=== PATIENT | female | born 1960 | race Caucasian/White ===

== ENCOUNTER 2023-08-23 14:30 | Oncology outpatient (recurring) (ONCR) | payer OTHER, SELFPAY ==
[2023-08-17 15:45] VITALS: BP 87/52; PULSE 79; RESP 16; TEMP 36.2; O2SAT 97
[2023-08-17] MEDS: sodium chloride 0.9% 1,000 ML 999 ML IV (15:51)
[2023-08-17 16:25] VITALS: BP 85/79; PULSE 77; RESP 18; TEMP 36.4; O2SAT 99
[2023-08-23] MEDS: sodium chloride 0.9% 1,000 ML 999 ML IV (14:13)
[2023-08-23 15:30] VITALS: BP 77/49; PULSE 77; RESP 20; TEMP 36.6; O2SAT 92
--- NOTE | 2023-08-23 16:03 | PC.NURSE ---
Education given to patient and family related to G tube and need for a physician in home town. Discussed how to get orders for feeding supplies and referral for closer MD care. Patient stated understanding.
== END 2023-08-25 23:59 | disposition home or self-care (01) ==
PROVIDERS: Family Provider Nurse Practitioner Family; Visit Provider Internal Medicine Medical Oncology
DX: Z53.9 Procedure and treatment not carried out, unspecified reason (principal); I95.9 Hypotension, unspecified; E87.1 Hypo-osmolality and hyponatremia; E87.5 Hyperkalemia
CPT/HCPCS: 96360; 96365; J7030

== ENCOUNTER 2023-08-30 18:04 | Emergency (ER) | payer OTHER, SELFPAY ==
[2023-08-30] VITALS (13 sets, daily range): BP systolic 82–112; BP diastolic 48–64; PULSE 67–79; RESP 15–18; TEMP 36.4–36.9; O2SAT 97–100; BMI 15.4
--- NOTE | 2023-08-30 18:30 | ED_ITS ---
HPI - Recheck/Abnormal Lab/Rx General: Chief Complaint: Recheck/Abnormal Lab/Rx Stated Complaint: Oncol sent hemoglbin low Time Seen by Provider: 08/30/23 18:21 History of Present Illness: 63-year-old female with a history of hea d neck cancer with tracheostomy who presents the emergency room after lab work was drawn today that revealed she was anemic. She has a macrocytic anemia. No recent GI bleeding no black tarry stools. No increased weakness. says she does seem a little bit pale. Review of Systems Narrative: Constitutional symptoms: Negative except as documented in HPI. Skin symptoms: Negative except as documented in HPI. Eye symptoms: Negative except as documented in HPI. ENMT symptoms: Negative except as documented in HPI. Respiratory symptoms: Negative except as documented in HPI. Cardiovascular symptoms: Negative except as documented in HPI. Gastrointestinal symptoms: Negative except as documented in HPI. Genitourinary symptoms: Negative except as documented in HPI. Musculoskeletal symptoms: Negative except as documented in HPI. Neurologic symptoms: Negative except as documented in HPI. Psychiatric symptoms: Negative except as documented in HPI. Endocrine symptoms: Negative except as documented in HPI. Physical Exam Narrative: EXAM NARRATIVE: General: Alert, no acute distress. Skin: Warm, dry. Head: Normocephalic, atraumatic. Neck: Supple, trachea midline. Tracheostomy in place Eye: Extraocular movements are intact. Ears, nose, mouth and throat: mucosa moist. Cardiovascular: Regular, Normal peripheral perfusion. Respiratory: Lungs are clear to auscultation, respirations are non-labored, br eath sounds are equal, Symmetrical chest wall expansion. Gastrointestinal: Soft, Nontender, Non distended, Normal bowel sounds. Musculoskeletal: Normal ROM, no deformity. Neurological: Alert and oriented, No focal neurological deficit observed. Psychiatric: Cooperative, appropriate mood & affect. Course Vital Signs: Vital signs: Vital Signs Temperature 97.8 F 08/30/23 20:34 Pulse Rate 77 08/30/23 20:34 Respiratory Rate 16 08/30/23 20:34 Blood Pressure 98/54 08/30/23 20:34 Pulse Oximetry 99 08/30/23 20:34 Oxygen Delivery Me thod Room Air, Trach C ollar 08/30/23 18:07 MDM - Recheck/Abnormal Lab/Rx Medical Decision Making Assessment and plan: Anemia -2 units packed red blood cells ordered. Also ordered iron and thiamine and folate levels - Discharged home - Discussed plan with patient. Answered any questions. - Evaluation and treatment of this problem were appropriate in the emergency setting. Lab Data Laboratory Results Iron 72 ug/dL (37-145) 08/30/23 17:02 TIBC 381 mcg/dl 08/30/23 17:02 % Saturation 18.8 % (20-50) L 08/30/23 17:02 Unsat Iron Binding 309 ug/dL (112-347) 08/30/23 17:02 Folate 19.3 ng/mL (4.8-37.3) 08/30/23 17:02 Blood Type A Positive 08/30/23 17:02 Rho(D) Type Rh positive 08/30/23 17:02 Antibody Screen Negative 08/30/23 17:02 Crossmatch See Detail 08/30/23 17:02 No radiology studies performed this visit Discharge Plan Discharge Patient Disposition: Home Clinical Impression: Anemia Qualifiers: Anemia type: unspecified type Qualified Code(s): D64.9 - Anemia, unspecified Condition: Stable Discharge Orders: Discharge ED (Routine); Ordered 08/30/23 Ordered By: Beth Finley Referrals: Xi Corona FNP [Primary Care Provider] - Discharge Diet: Usual diet Discharge Activity: Resume usual activity Patient Instructions: Anemia (ED), Blood Transfusion (DC) Activity Restrictions/Additional Instructions: Thank you for choosing [facility] for your healthcare needs today. Please realize this is an emergency room and that we are providing you with a medical screening exam and this may not be complete and all inclusive of all the testing and or work up that you may need to determine your ailment or severity of your illness. You have been screened and evaluated and felt safe for discharge. Health conditions do change or evolve sometimes and as such it is important that you follow up with your Primary Doctor to be re checked, 3-5 days is a general good time frame for follow up. You are always welcome to return to the ED for re assessment if your symptoms are worsening or you have new concerns Coding Level of Care Code ED Auto Heater Mechanic for Adria Song
[2023-08-30 19:39] LABS: Iron 72 ug/dL (37-145); Percent Saturation 18.8 % (20-50); Total Iron Binding Capacity 381 mcg/dl; Unsaturated Iron Binding 309 ug/dL (112-347)
[2023-08-30 20:02] LABS: Folate Level 19.3 ng/mL (4.8-37.3)
--- NOTE | 2023-08-30 20:56 | PC.NURSE ---
RT CALLED TO SUCTION PT
[2023-09-05 15:18] LABS: Vitamin B1 (Thiamine),Blood 166 nmol/L (78-185)
== END 2023-08-31 00:39 | disposition home or self-care (01) ==
PROVIDERS: Emergency Provider Emergency Medicine; PCP Nurse Practitioner Family
DX: D64.9 Anemia, unspecified (principal); Z93.0 Tracheostomy status
CPT/HCPCS: 36430; 82746; 83540; 83550; 84425; 86850; 86900; 86920; 99284; P9016; P9040

== ENCOUNTER 2023-09-21 15:00 | Oncology outpatient (recurring) (ONCR) | payer OTHER, SELFPAY ==
[2023-08-30] MEDS: sodium chloride 0.9% 1,000 ML 999 ML IV (15:16)
[2023-08-30 15:19] VITALS: BP 69/42; PULSE 58; RESP 18; TEMP 36.8; O2SAT 97
[2023-08-30 15:22] VITALS: BP 80/42
[2023-08-30 16:26] VITALS: BP 86/54
[2023-08-30 16:39] LABS: Basophils # 0.1 10^3/uL (0.0-0.1); Basophils % 0.9 %; Eosinophils # 0.3 10^3/uL (0.0-0.8); Eosinophils % 4.9 %; Lymphocytes % 18.8 %; Mean Corpuscular Hemoglobin 33.7 pg (27-33); Mean Corpuscular Volume 108.9 fl (85-98); Mean Platelet Volume 10.1 fL (7.4-10.4); Monocytes # 0.5 10^3/uL (0.2-0.9); Monocytes % 9.4 %; Neutrophils # 3.48 10^3/uL (1.8-7.7); Neutrophils % 65.2 %; Nucleated Red Blood Cells % 0.4 %; Platelet Count 189 10^3/cmm (157-399); Red Blood Count 1.69 10^6/uL (3.85-5.65); Red Cell Distribution Width 18.2 % (12.1-15.1); White Blood Count 5.33 10^3/uL (3.29-11.43)
[2023-08-30 16:53] LABS: Hematocrit 18.4 % (36-47)
[2023-08-30 18:03] LABS: Alanine Aminotransferase 9 U/L (0-33); Albumin Level 3.2 g/dL (3.5-5.2); Alkaline Phosphatase 61 U/L (35-105); Aspartate Amino Transferase 16 U/L (0-32); Calcium 7.8 mg/dL (8.5-10.5); Carbon Dioxide 18 mmol/L (22-29); Chloride 113 mmol/L (98-107); Globulin 2.3 g/dL (1.3-4.6); Glomerular Filtration Rate 45.4 mL/min (90-130); Glucose 72 mg/dL (65-115); Osmolality Calculated 318 mOsm/kg (285-295); Sodium 142 mmol/L (136-145); Total Bilirubin 0.2 mg/dL (0.15-1.2); Total Protein 5.5 g/dL (6.6-8.7)
[2023-08-30 18:46] LABS: Blood Urea Nitrogen 83 mg/dL (8-23)
[2023-09-07] MEDS: sodium chloride 0.9% 1,000 ML 999 ML IV (15:12)
[2023-09-07 15:19] LABS: Basophils # 0.1 10^3/uL (0.0-0.1); Eosinophils # 0.3 10^3/uL (0.0-0.8); Eosinophils % 5.4 %; Hematocrit 33.3 % (36-47); Lymphocytes # 1.1 10^3/uL (0.8-4.8); Lymphocytes % 17.5 %; Mean Corpuscular Hemoglobin 32.9 pg (27-33); Mean Corpuscular Volume 99.7 fl (85-98); Mean Platelet Volume 9.1 fL (7.4-10.4); Monocytes # 0.6 10^3/uL (0.2-0.9); Monocytes % 9.4 %; Neutrophils # 4.03 10^3/uL (1.8-7.7); Neutrophils % 66.5 %; Nucleated Red Blood Cells % 0 %; Platelet Count 225 10^3/cmm (157-399); Red Blood Count 3.34 10^6/uL (3.85-5.65); Red Cell Distribution Width 17.3 % (12.1-15.1); White Blood Count 6.06 10^3/uL (3.29-11.43)
[2023-09-07 16:17] LABS: Alanine Aminotransferase 13 U/L (0-33); Albumin Level 3.6 g/dL (3.5-5.2); Alkaline Phosphatase 65 U/L (35-105); Anion Gap 13.1 (5-19); Aspartate Amino Transferase 19 U/L (0-32); Blood Urea Nitrogen 47 mg/dL (8-23); Calcium 8.8 mg/dL (8.5-10.5); Carbon Dioxide 21 mmol/L (22-29); Chloride 112 mmol/L (98-107); Globulin 2.6 g/dL (1.3-4.6); Glomerular Filtration Rate 63.2 mL/min (90-130); Glucose 76 mg/dL (65-115); Osmolality Calculated 303 mOsm/kg (285-295); Potassium 5.1 mmol/L (3.5-5.1); Sodium 141 mmol/L (136-145); Total Bilirubin 0.2 mg/dL (0.15-1.2); Total Protein 6.2 g/dL (6.6-8.7)
[2023-09-07 16:20] VITALS: BP 106/66; PULSE 70; RESP 16; TEMP 37.2; O2SAT 98
[2023-09-14 15:00] VITALS: BP 89/71; PULSE 89; RESP 18; TEMP 36.6; O2SAT 98
[2023-09-14] MEDS: sodium chloride 0.9% 1,000 ML 999 ML IV (15:00)
[2023-09-14 16:00] VITALS: BP 89/68; PULSE 82; RESP 18; TEMP 36.6; O2SAT 98
[2023-09-21 15:10] VITALS: BP 80/59; PULSE 87; RESP 18; TEMP 36.5; O2SAT 97
[2023-09-21] MEDS: sodium chloride 0.9% 1,000 ML 999 ML IV (15:16)
[2023-09-21 16:29] VITALS: BP 99/64; PULSE 83; RESP 17; TEMP 36.4; O2SAT 99
== END 2023-09-24 23:59 | disposition home or self-care (01) ==
PROVIDERS: Family Provider Nurse Practitioner Family; Visit Provider Internal Medicine Medical Oncology
DX: Z53.9 Procedure and treatment not carried out, unspecified reason (principal); I95.9 Hypotension, unspecified; E87.1 Hypo-osmolality and hyponatremia; E87.5 Hyperkalemia; C15.9 Malignant neoplasm of esophagus, unspecified
CPT/HCPCS: 80053; 85025; 96360; J7030

== ENCOUNTER 2023-10-25 14:00 | Oncology outpatient (recurring) (ONCR) | payer OTHER, SELFPAY ==
[2023-10-05] MEDS: sodium chloride 0.9% 1,000 ML 999 ML IV (15:27)
[2023-10-05 15:33] VITALS: BP 97/63; PULSE 65; RESP 17; TEMP 36.2; O2SAT 100
[2023-10-05 16:38] VITALS: BP 97/61; PULSE 66; RESP 16; TEMP 36.2; O2SAT 100
[2023-10-12 14:36] VITALS: BP 101/61; PULSE 80; RESP 17; TEMP 36.4; O2SAT 95
[2023-10-12] MEDS: sodium chloride 0.9% 1,000 ML 999 ML IV (14:45)
[2023-10-19 13:45] LABS: Basophils % 0.5 %; Eosinophils # 0.1 10^3/uL (0.0-0.8); Eosinophils % 1.5 %; Hematocrit 29.5 % (36-47); Lymphocytes # 1.2 10^3/uL (0.8-4.8); Mean Corpuscular HGB Conc 30.2 g/dL (30-55); Mean Corpuscular Hemoglobin 32.1 pg (27-33); Mean Corpuscular Volume 106.5 fl (85-98); Monocytes # 0.9 10^3/uL (0.2-0.9); Monocytes % 9.9 %; Neutrophils # 6.47 10^3/uL (1.8-7.7); Neutrophils % 73.8 %; Nucleated Red Blood Cells % 0 %; Platelet Count 330 10^3/cmm (157-399); Red Blood Count 2.77 10^6/uL (3.85-5.65); Red Cell Distribution Width 14.6 % (12.1-15.1); White Blood Count 8.77 10^3/uL (3.29-11.43)
[2023-10-19] MEDS: sodium chloride 0.9% 1,000 ML 999 ML IV (13:45)
[2023-10-19 14:04] LABS: Alanine Aminotransferase 14 U/L (0-33); Albumin Level 4.2 g/dL (3.5-5.2); Alkaline Phosphatase 80 U/L (35-105); Anion Gap 16.2 (5-19); Aspartate Amino Transferase 21 U/L (0-32); Blood Urea Nitrogen 63 mg/dL (8-23); Calcium 9.2 mg/dL (8.5-10.5); Carbon Dioxide 18 mmol/L (22-29); Chloride 110 mmol/L (98-107); Globulin 3.1 g/dL (1.3-4.6); Glomerular Filtration Rate 50.2 mL/min (90-130); Glucose 118 mg/dL (65-115); Osmolality Calculated 305 mOsm/kg (285-295); Potassium 6.2 mmol/L (3.5-5.1); Sodium 138 mmol/L (136-145); Total Bilirubin 0.3 mg/dL (0.15-1.2); Total Protein 7.3 g/dL (6.6-8.7)
[2023-10-25] MEDS: sodium chloride 0.9% 1,000 ML 999 ML IV ×2 (13:37→14:43)
[2023-10-25 13:44] VITALS: BP 102/63; PULSE 73; O2SAT 99
[2023-10-25 16:16] LABS: Alanine Aminotransferase 11 U/L (0-33); Albumin Level 3.5 g/dL (3.5-5.2); Alkaline Phosphatase 63 U/L (35-105); Aspartate Amino Transferase 19 U/L (0-32); Blood Urea Nitrogen 42 mg/dL (8-23); Calcium 7.7 mg/dL (8.5-10.5); Carbon Dioxide 16 mmol/L (22-29); Chloride 117 mmol/L (98-107); Globulin 2.6 g/dL (1.3-4.6); Glomerular Filtration Rate 72.4 mL/min (90-130); Glucose 98 mg/dL (65-115); Osmolality Calculated 302 mOsm/kg (285-295); Sodium 141 mmol/L (136-145); Total Bilirubin 0.2 mg/dL (0.15-1.2); Total Protein 6.1 g/dL (6.6-8.7)
== END 2023-10-25 23:59 | disposition home or self-care (01) ==
PROVIDERS: Internal Medicine; Family Provider Nurse Practitioner Family; PCP Nurse Practitioner Family; Visit Provider Internal Medicine Medical Oncology
DX: E87.5 Hyperkalemia (principal); Z53.9 Procedure and treatment not carried out, unspecified reason
CPT/HCPCS: 36591; 80053; 85025; 96360; 96361; J7030

== ENCOUNTER 2023-10-31 15:25 | Emergency (ER) | payer OTHER, SELFPAY ==
[2023-10-31 15:40] VITALS: BP 116/75; PULSE 83; RESP 22; TEMP 36.8; O2SAT 98
--- NOTE | 2023-10-31 16:59 | CTR_ITS ---
PROCEDURE INFORMATION: Exam: CT Neck With Contrast Exam date and time: 10/31/2023 6:20 PM Age: 63 years old Clinical indication: Mass, lump, or swelling in neck; Right; Neck pain; Prior surgery; Surgery date: 6+ months; Surgery type: Trach TECHNIQUE: Imaging protocol: Computed tomography of the neck with contrast. Radiation optimization: All CT scans at this facility use at least one of these dose optimization techniques: automated exposure control; mA and/or kV adjustment per patient size (includes targeted exams where dose is matched to clinical indication); or iterative reconstruction. Contrast material: OMNI 350; Contrast volume: 70 ml; Contrast route: INTRAVENOUS (IV); COMPARISON: CT head wo con* [id number] 09/23/2018 10:11 AM RADIATION DOSE METRICS: Total DLP (mGy-cm): 173 FINDINGS: Tubes, catheters and devices: Tracheostomy tube courses within the trachea with its tip terminating proximally 3.2 cm above the nehemiah. Right-sided chest port courses within SVC extending inferiorly out of the field of view. Brain: No acute intracranial findings. Salivary glands: The submandibular and parotid glands are atrophic. Pharynx: No significant tonsillar enlargement. Prevertebral and retropharyngeal spaces: There is a 0.6 x 0.5 x 0.9 cm nonspecific enhancing focus medial to the left carotid bifurcation (series 3, image 83). Larynx: Epiglottis is normal. Thyroid: Subcentimeter hypoattenuating thyroid nodules. Trachea: Visualized trachea is unremarkable. Lungs: No focal consolidations. There is a 1.0 x 0.6 cm nodular opacity within the right upper lobe (series 3, image 133). Pleural spaces: Severe emphysema with biapical pleural-parenchymal scarring. Lymph nodes: Mildly prominent mediastinal lymph nodes. No cervical lymphadenopathy. Vasculature: Mild atherosclerotic calcifications. Mild atherosclerotic calcifications of the bilateral carotid bifurcations and proximal internal carotid arteries without significant stenosis. Bones/joints: Prominent posterior disc osteophyte complexes of the lower of C5-C6 and C6-C7 causing a mild degree of central canal stenosis. Mild bilateral facet arthropathy. Soft tissues: There is skin thickening within the soft tissues surrounding the trachea without mass lesions. CT/CT neck w con* [id number] IMPRESSION: 1. There is a 0.6 x 0.5 x 0.9 cm nonspecific enhancing focus medial to the left carotid bifurcation (series 3, image 83). Findings can be further evaluated with PET-CT if clinically indicated. 2. There is a 1.0 x 0.6 cm nodular opacity within the right upper lobe (series 3, image 133). Findings can also be further evaluated with PET-CT if clinically indicated. This was not seen on prior chest CT May 26, 2014. 3. There is skin thickening within the soft tissues surrounding the trachea without mass lesions. COMMENTS: Consistent with the [employer]'s Incidental Findings Committee white paper (J Am Maia Radiol 2015): In patients aged 35 years and older with an incidental thyroid nodule equal to or greater than 1.[address], MRI or extrathyroidal US, further evaluation with dedicated thyroid US is recommended for patients with normal life expectancy and without comorbidities. For smaller nodules without suspicious features, no further evaluation or follow up is recommended.
--- NOTE | 2023-10-31 17:16 | ED_ITS ---
HPI - General Adult 2 General: Chief complaint: Airway/Esophagus Foreign Body Stated complaint: Right side jaw swelling Time Seen by Provider: 10/31/23 16:56 Source: patient Mode of arrival: ambulatory Limitations: no limitations History of Present Illness: 63-year-old female and history of laryng eal cancer is had a trach she states she sees [place] for this she states she had an EGD 5 days ago and since then she has been having some swelling on the right side of her neck along with pain and some difficulty swallowing she denies any fevers denies any worse improved factors. Associated symptoms: Deny chest pain, dyspnea, headache(s), nausea, rash or vomiting Review of Systems 2 Const: Denies: fever(s), chills, body aches or change in appetite Eyes: Denies: blurry vision or eye discomfort ENMT: Reports: throat pain and odynophagia; Denies: dental pain Card: Denies: chest pain Resp: Denies: dyspnea GI: Denies: abdominal pain, nausea, vomiting or diarrhea Musc: Denies: neck pain or back pain Skin/Breast: Denies: rash Neuro: Denies: headache(s) Physical Exam 2 Const: COMMON NORMALS: patient oriented x3 HENMT: COMMON NORMALS: normocephalic and atraumatic HEAD & SCALP: n ormocephalic and atraumatic OTHER: No throat swelling noted on exam handling secretions well Eye: COMMON NORMALS: Equal, round and reactive pupils present and EOMs intact bilaterally PUPIL: Yes Equal, round and reactive pupils present Neck/C-Spine: COMMON NORMALS: full ROM and supple OTHER: Tenderness loss slight swelling to right side of the neck Chest: COMMONS NORMALS: normal inspection of the chest Resp: COMMON NORMALS: normal respiratory effort, No retractions, No use of accessory muscles and clear to auscultation bilaterally AUSCULTATION: clear to auscultation bilaterally Cardio: COMMON NORMALS: regular rate, regular rhythm and No murmurs present (Cardio) RATE: regular rate RHYTHM: regular rhythm Extremity: COMMON NORMALS: normal to inspection and full ROM Neuro: COMMON NORMALS: patient oriented x3, moves all extremities and no focal motor deficits Psych: COMMON NORMALS: mental status grossly normal, Normal thought process present and cooperative THOUGHT PROCESS: Normal thought process present Skin: COMMON NORMALS: no rashes or lesions noted and no wounds GENERAL SKIN EXAM: no rashes or lesions noted Course 2 Vital Signs: Vital signs: Vital Signs Temperature 98.3 F 10/31/23 15:40 Pulse Rate 83 10/31/23 15:40 Respiratory Rate 22 H 10/31/23 15:40 Blood Pressure 116/75 10/31/23 15:40 Pulse Oximetry 98 10/31/23 15:40 Oxygen Delivery Me thod Room Air 10/31/23 15:40 MDM - General Adult Medical Decision Making Patient presents here with neck pain CT showed no acute finding she has no signs of cellulitis or obstruction here either she does have an appointment back with ENT in [place] on Monday inform her she needs to follow-up as scheduled return if worsening she understands agrees to plan. Medical Records I reviewed the patient's medical records. Lab Data I reviewed the patient's lab results. 10/31/23 17:30 10/31/23 17:[address] 10/31/23 16:59 IMPRESSION: 1. There is a 0.6 x 0.5 x 0.9 cm nonspecific enhancing focus medial to the left carotid bifurcation (series 3, image 83). Findings can be further evaluated with PET-CT if clinically indicated. 2. There is a 1.0 x 0.6 cm nodular opacity within the right upper lobe (series 3, image 133). Findings can also be further evaluated with PET-CT if clinically indicated. This was not seen on prior chest CT May 26, 2014. 3. There is skin thickening within the soft tissues surrounding the trachea without mass lesions. COMMENTS: Consistent with the [employer]'s Incidental Findings Committee white paper (J Am Maia Radiol 2015): In patients aged 35 years and older with an incidental thyroid nodule equal to or greater than 1.[address], MRI or extrathyroidal US, further evaluation with dedicated thyroid US is recommended for patients with normal life expectancy and without comorbidities. For smaller nodules without suspicious features, no further evaluation or follow up is recommended. Laboratory Results WBC 8.94 10^3/uL (3.29-11.43) 10/31/23 17:30 RBC 2.60 10^6/uL (3.85-5.65) L 10/31/23 17:30 Hgb 8.30 g/dL (11.27-16.99) L 10/31/23 17:30 Hct 28.0 % (36-47) L 10/31/23 17:30 MCV 107.7 fl (85-98) H 10/31/23 17:30 MCH 31.9 pg (27-33) 10/31/23 17:30 MCHC 29.6 g/dL (30-55) L 10/31/23 17:30 RDW 14.2 % (12.1-15.1) 10/31/23 17:30 Plt Count 375 10^3/cmm (157-399) 10/31/23 17:30 MPV 9.7 fL (7.4-10.4) 10/31/23 17:30 Neut % (Auto) 75.6 % 10/31/23 17:30 Lymph % (Auto) 12.1 % 10/31/23 17:30 [place] % (Auto) 8.7 % 10/31/23 17:30 Eos % (Auto) 2.2 % 10/31/23 17:30 Baso % (Auto) 0.8 % 10/31/23 17:30 Neut # (Auto) 6.76 10^3/uL (1.8-7.7) 10/31/23 17:30 Lymph # (Auto) 1.1 10^3/uL (0.8-4.8) 10/31/23 17:30 [place] # (Auto) 0.8 10^3/uL (0.2-0.9) 10/31/23 17:30 Eos # (Auto) 0.2 10^3/uL (0.0-0.8) 10/31/23 17:30 Baso # (Auto) 0.1 10^3/uL (0.0-0.1) 10/31/23 17:30 Nucleated RBC % (auto) 0 % 10/31/23 17:30 Nucleated RBCs # 0.0 /100WBC 10/31/23 17:30 Sodium 136 mmol/L (136-145) 10/31/23 17:30 Potassium 5.5 mmol/L (3.5-5.1) H 10/31/23 17:30 Chloride 103 mmol/L (98-107) 10/31/23 17:30 Carbon Dioxide 18 mmol/L (22-29) L 10/31/23 17:30 Anion Gap 20.5 (5-19) H 10/31/23 17:30 BUN 36 mg/dL (8-23) H 10/31/23 17:30 Creatinine 0.8 mg/dL (0.5-0.9) 10/31/23 17:30 GFR Calculation 72.4 mL/min (90-130) L 10/31/23 17:30 Glucose 92 mg/dL (65-115) 10/31/23 17:30 Calculated Osmolality 290 mOsm/kg (285-295) 10/31/23 17:30 Calcium 9.5 mg/dL (8.5-10.5) 10/31/23 17:30 Total Bilirubin 0.2 mg/dL (0.15-1.2) 10/31/23 17:30 AST 20 U/L (0-32) 10/31/23 17:30 ALT 15 U/L (0-33) 10/31/23 17:30 Alkaline Phosphatase 87 U/L (35-105) 10/31/23 17:30 Total Protein 7.9 g/dL (6.6-8.7) 10/31/23 17:30 Albumin 4.1 g/dL (3.5-5.2) 10/31/23 17:30 Globulin 3.8 g/dL (1.3-4.6) 10/31/23 17:30 All radiology interpretation(s) finalized by discharge Discharge Plan Discharge Patient Disposition: Home Clinical Impression: Neck pain Condition: Stable Prescriptions: New hydrocodone-acetaminophen 5-325 mg tablet 1 tab PO Q6H PRN (Reason: pain) Qty: 14 0RF Discharge Orders: Discharge ED (Routine); Ordered 10/31/23 Ordered By: Consuelo Galindo Referrals: Corona,PHILIP LayneP [Primary Care Provider] - Discharge Diet: Advance as tolerated Discharge Activity: Resume usual activity Patient Instructions: Neck Pain (ED), Opioid Safety Coding Level of Care Code ED Assistant Public Defender for Adria Song
[2023-10-31 17:43] LABS: Basophils # 0.1 10^3/uL (0.0-0.1); Basophils % 0.8 %; Eosinophils # 0.2 10^3/uL (0.0-0.8); Eosinophils % 2.2 %; Lymphocytes # 1.1 10^3/uL (0.8-4.8); Lymphocytes % 12.1 %; Mean Corpuscular HGB Conc 29.6 g/dL (30-55); Mean Corpuscular Hemoglobin 31.9 pg (27-33); Mean Corpuscular Volume 107.7 fl (85-98); Mean Platelet Volume 9.7 fL (7.4-10.4); Monocytes # 0.8 10^3/uL (0.2-0.9); Monocytes % 8.7 %; Neutrophils # 6.76 10^3/uL (1.8-7.7); Neutrophils % 75.6 %; Nucleated Red Blood Cells % 0 %; Platelet Count 375 10^3/cmm (157-399); Red Cell Distribution Width 14.2 % (12.1-15.1); White Blood Count 8.94 10^3/uL (3.29-11.43)
[2023-10-31 17:58] LABS: Alanine Aminotransferase 15 U/L (0-33); Albumin Level 4.1 g/dL (3.5-5.2); Alkaline Phosphatase 87 U/L (35-105); Anion Gap 20.5 (5-19); Aspartate Amino Transferase 20 U/L (0-32); Blood Urea Nitrogen 36 mg/dL (8-23); Calcium 9.5 mg/dL (8.5-10.5); Carbon Dioxide 18 mmol/L (22-29); Chloride 103 mmol/L (98-107); Creatinine Clr Calc Pharmacy 48.4489; Globulin 3.8 g/dL (1.3-4.6); Glomerular Filtration Rate 72.4 mL/min (90-130); Glucose 92 mg/dL (65-115); Osmolality Calculated 290 mOsm/kg (285-295); Potassium 5.5 mmol/L (3.5-5.1); Sodium 136 mmol/L (136-145); Total Bilirubin 0.2 mg/dL (0.15-1.2); Total Protein 7.9 g/dL (6.6-8.7)
[2023-10-31] MEDS: iohexol 350 mg/mL 500 mL Btl (per mL) IV (18:27)
[2023-10-31 19:08] VITALS: RESP 20; O2SAT 92
[2023-10-31] MEDS: HYDROmorphone 1 mg/mL INJ 1 mL 0.5 MG IVP (19:08)
[2023-10-31] MEDS: ondansetron 2 mg/ML SDV 2 mL 4 MG IVP (19:09)
[2023-10-31 19:15] VITALS: RESP 16; O2SAT 93
== END 2023-10-31 19:36 | disposition home or self-care (01) ==
PROVIDERS: Emergency Provider Emergency Medicine; PCP Nurse Practitioner Family
DX: M54.2 Cervicalgia (principal)
CPT/HCPCS: 36415; 70491; 80053; 85025; 96374; 96375; 99285; J1170; J2405; Q9967

== ENCOUNTER 2023-11-04 14:00 | Observation (INO) | payer OTHER, SELFPAY ==
[2023-11-04] VITALS (24 sets, daily range): BP systolic 117–167; BP diastolic 56–83; PULSE 63–81; RESP 12–21; TEMP 36.5–37.2; O2SAT 94–100; BMI 17.3
--- NOTE | 2023-11-04 14:38 | ED_ITS ---
HPI - General Adult 2 General: Chief complaint: General Medical Stated complaint: labs from [place] yest. Hemoglobin low Time Seen by Provider: 11/04/23 14:14 History of Present Illness: 63-year-old female presents to the [facility] ency room with complaints of abnormal labs. She has a history of laryngeal cancer as well as having a PEG tube and an ileostomy from a previous large bowel perforation. She was seen in [place] yesterday in follow-up had lab work done evidently they contacted that her hemoglobin was 6.2. She denies any known blood loss as she has not had any hematochezia hematemesis coffee-ground emesis. She is not on any anticoagulants. She has no history of anemia issues in the past. Associated symptoms: Deny chest pain, dyspnea or rash Related Data Previous Rx's Medication Instructions Recorded hydrocodone 5 mg-acetaminophen 325 1 tab PO Q6H PRN pain #14 tabs 10/31/23 mg tablet Allergies Allergy/AdvReac Type Severity Reaction Status Date / Time morphine Allergy ADR-Vomitin Verified 11/04/23 14:11 g Review of Systems 2 Const: Denies: fever(s) or chills Card: Denies: chest pain Resp: Denies: dyspnea GI: Denies: abdominal pain : Denies: dysuria, urinary frequency or urinary urgency Musc: Denies: neck pain or back pain Skin/Breast: Denies: rash PFSH ED 2 PFSH: Medical History (Updated 11/04/23 @ 16:57 by Osmel Sierra DO) Amphetamine abuse Tracheostomy in place Ileostomy in place Laryngeal cancer Physical Exam 2 Const: COMMON NORMALS: no acute distress GENERAL APPEARANCE: cooperative and comfortable ORIENTATION/CONSCIOUSNESS: Yes awake, Yes oriented to person, Yes oriented to place and Yes oriented to time HENMT: COMMON NORMALS: normocephalic, atraumatic and hearing grossly normal bilaterally HEAD & SCALP: normocephalic and atraumatic OTHER: Tracheostomy in place. No redness or inflammation of mucus drainage Resp: COMMON NORMALS: normal respiratory effort, No retractions and No use of accessory muscles AUSCULTATION: crackles Laterality: bilateral (Basilar) Cardio: COMMON NORMALS: regular rate, regular rhythm and No murmurs present (Cardio) RATE: regular rate RHYTHM: regular rhythm GI: COMMON NORMALS: Soft to palpation and No hepatosplenomegaly present A USCULTATION: Yes normoactive bowel sounds PALPATION: Yes Soft to palpation, No Tenderness to palpation present (GI), No Guarding due to palpation present (GI) and Yes No hepatosplenomegaly present OTHER: PEG tube and ileostomy in place no abnormal appearance. Extremity: COMMON NORMALS: normal to inspection, capillary refill normal, no clubbing, cyanosis or edema, no calf tenderness and no pedal edema Neuro: SENSORIUM/ORIENTATION: Yes oriented to person, Yes oriented to place and Yes oriented to time Skin: COMMON NORMALS: no rashes or lesions noted GENERAL SKIN EXAM: no rashes or lesions noted Course 2 Vital Signs: Vital signs: Vital Signs Temperature 98.2 F 11/04/23 14:06 Pulse Rate 72 11/04/23 14:06 Respiratory Rate 17 11/04/23 14:06 Blood Pressure 127/65 11/04/23 14:06 Pulse Oximetry 100 11/04/23 14:06 Oxygen Delivery Me thod Room Air 11/04/23 14:06 [facility] - General Adult Medical Decision Making Patient is anemic is also mildly hyperkalemic she seems to be in acute heart failure as well. She has a history of laryngeal cancer. She was at [place] to get evaluation for takedown of her tracheostomy she is not currently getting any chemotherapy treatments. She is receiving potassium supplement which may account for her hyperkalemia. She had no identifiable active sources of bleeding. Her BNP is markedly elevated and chest x-ray does show signs of fluid overload. Will admit patient is receiving IV blood now will need further evaluation for new onset heart failure she was given calcium chloride for hyperkalemia and will hold her potassium supplement Lab Data 11/04/23 14:30 11/04/23 14:30 Radiology Impressions Chest X-Ray 11/04/23 15:26 IMPRESSION: Small right pleural effusion with associated atelectasis Laboratory Results WBC 10.67 10^3/uL (3.29-11.43) 11/04/23 14:30 RBC 2.26 10^6/uL (3.85-5.65) L 11/04/23 14:30 Hgb 7.00 g/dL (11.27-16.99) L 11/04/23 14:30 Hct 23.9 % (36-47) L 11/04/23 14:30 MCV 105.8 fl (85-98) H 11/04/23 14:30 MCH 31.0 pg (27-33) 11/04/23 14:30 MCHC 29.3 g/dL (30-55) L 11/04/23 14:30 RDW 13.8 % (12.1-15.1) 11/04/23 14:30 Plt Count 344 10^3/cmm (157-399) 11/04/23 14:30 MPV 9.3 fL (7.4-10.4) 11/04/23 14:30 Neut % (Auto) 79.4 % 11/04/23 14:30 Lymph % (Auto) 9.7 % 11/04/23 14:30 [place] % (Auto) 8.4 % 11/04/23 14:30 Eos % (Auto) 1.6 % 11/04/23 14:30 Baso % (Auto) 0.5 % 11/04/23 14:30 Reticulocyte % (Auto) 4.5 % (0.5-2.0) H 11/04/23 14:30 Neut # (Auto) 8.48 10^3/uL (1.8-7.7) H 11/04/23 14:30 Lymph # (Auto) 1.0 10^3/uL (0.8-4.8) 11/04/23 14:30 [place] # (Auto) 0.9 10^3/uL (0.2-0.9) 11/04/23 14:30 Eos # (Auto) 0.2 10^3/uL (0.0-0.8) 11/04/23 14:30 Baso # (Auto) 0.1 10^3/uL (0.0-0.1) 11/04/23 14:30 Nucleated RBC % (auto) 0 % 11/04/23 14: Nucleated RBCs # 0.0 /100WBC 11/04/23 14:30 Sodium 142 mmol/L (136-145) 11/04/23 14:30 Potassium 5.3 mmol/L (3.5-5.1) H 11/04/23 14:30 Chloride 107 mmol/L (98-107) 11/04/23 14:30 Carbon Dioxide 24 mmol/L (22-29) 11/04/23 14:30 Anion Gap 16.3 (5-19) 11/04/23 14:30 BUN 37 mg/dL (8-23) H 11/04/23 14:30 Creatinine 0.9 mg/dL (0.5-0.9) 11/04/23 14:30 GFR Calculation 63.2 mL/min (90-130) L 11/04/23 14:30 Glucose 110 mg/dL (65-115) 11/04/23 14:30 Calculated Osmolality 303 mOsm/kg (285-295) H 11/04/23 14:30 Calcium 9.1 mg/dL (8.5-10.5) 11/04/23 14:30 Total Bilirubin 0.2 mg/dL (0.15-1.2) 11/04/23 14:30 AST 21 U/L (0-32) 11/04/23 14:30 ALT 18 U/L (0-33) 11/04/23 14:30 Alkaline Phosphatase 96 U/L (35-105) 11/04/23 14:30 Creatine Kinase 37 U/L (26-192) 11/04/23 14:30 NT-Pro-B Natriuret Pep 06216 pg/mL (0-125) H 11/04/23 14:30 Total Protein 7.3 g/dL (6.6-8.7) 11/04/23 14:30 Albumin 3.8 g/dL (3.5-5.2) 11/04/23 14:30 Globulin 3.5 g/dL (1.3-4.6) 11/04/23 14:30 Blood Type A Positive 11/04/23 15:14 Rho(D) Type Rh positive 11/04/23 15:14 Antibody Screen Negative 11/04/23 15:14 Crossmatch See Detail 11/04/23 15:14 All radiology interpretation(s) finalized by discharge Discharge Plan Discharge Patient Disposition: Admitted As Inpatient Clinical Impression: CHF (congestive heart failure), Laryngeal cancer, Ileostomy in place, Tracheostomy in place, Anemia, Hyperkalemia Condition: Stable Prescriptions: No Action hydrocodone-acetaminophen 5-325 mg tablet 1 tab PO Q6H PRN (Reason: pain) Qty: 14 0RF Referrals: Corona,Xi, IRRIGATION SYSTEM OPERATOR [Primary Care Provider] - Coding Level of Care Code ED Family Intervention Specialist for Adria Song
[2023-11-04 14:44] LABS: Basophils # 0.1 10^3/uL (0.0-0.1); Basophils % 0.5 %; Eosinophils # 0.2 10^3/uL (0.0-0.8); Eosinophils % 1.6 %; Hematocrit 23.9 % (36-47); Lymphocytes % 9.7 %; Mean Corpuscular HGB Conc 29.3 g/dL (30-55); Mean Corpuscular Volume 105.8 fl (85-98); Mean Platelet Volume 9.3 fL (7.4-10.4); Monocytes # 0.9 10^3/uL (0.2-0.9); Monocytes % 8.4 %; Neutrophils # 8.48 10^3/uL (1.8-7.7); Neutrophils % 79.4 %; Nucleated Red Blood Cells % 0 %; Platelet Count 344 10^3/cmm (157-399); Red Blood Count 2.26 10^6/uL (3.85-5.65); Red Cell Distribution Width 13.8 % (12.1-15.1); White Blood Count 10.67 10^3/uL (3.29-11.43)
[2023-11-04 15:05] LABS: Alanine Aminotransferase 18 U/L (0-33); Albumin Level 3.8 g/dL (3.5-5.2); Alkaline Phosphatase 96 U/L (35-105); Anion Gap 16.3 (5-19); Aspartate Amino Transferase 21 U/L (0-32); Blood Urea Nitrogen 37 mg/dL (8-23); Calcium 9.1 mg/dL (8.5-10.5); Carbon Dioxide 24 mmol/L (22-29); Chloride 107 mmol/L (98-107); Creatine Phosphokinase 37 U/L (26-192); Creatinine Clr Calc Pharmacy 51.6582; Globulin 3.5 g/dL (1.3-4.6); Glomerular Filtration Rate 63.2 mL/min (90-130); Glucose 110 mg/dL (65-115); Osmolality Calculated 303 mOsm/kg (285-295); Potassium 5.3 mmol/L (3.5-5.1); Sodium 142 mmol/L (136-145); Total Bilirubin 0.2 mg/dL (0.15-1.2); Total Protein 7.3 g/dL (6.6-8.7)
--- NOTE | 2023-11-04 15:26 | XRR_ITS ---
PROCEDURE INFORMATION: Exam: XR Chest Exam date and time: 11/04/2023 3:41 PM Age: 63 years old Clinical indication: Shortness of breath; Patient HX: Cough; Weakbess; Low hemoglobin TECHNIQUE: Imaging protocol: Radiologic exam of the chest. Views: 1 view. COMPARISON: CT chest w con* [id number] 05/26/2014 11:00 AM FINDINGS: Tubes, catheters and devices: A tracheostomy tube is in good position. A right-sided VAD is in good position with the catheter tip in the lower SVC. Lungs: See Pleural spaces finding. Pleural spaces: A small right pleural effusion is noted along with right basilar atelectasis. Heart/Mediastinum: Unremarkable. No cardiomegaly. Bones/joints: Unremarkable. XR/XR chest 1V portable [id number] IMPRESSION: Small right pleural effusion with associated atelectasis
[2023-11-04 16:00] LABS: NT Pro B Type Natriuretic Pept 12318 pg/mL (0-125)
--- NOTE | 2023-11-04 16:33 | P.HP_ITS ---
Providers/Chief Complaint 2 Primary Care Provider: JASSON Nash Chief Complaint: labs from [facility] yest. Hemoglobin low History of Present Illness Eliane Noble is a 63 year old female with past medical history of laryngeal cancer, post tracheostomy and PEG tube placement back in January 2023, ileostomy for unknown reason in April 2022, post chemoradiation therapy last in February 2023, who follows up for laryngeal cancer at [facility]. Patient followed up at [facility] yesterday for perioperative care in setting of permanent tracheostomy. On the preoperative blood work she was found to be anemic with hemoglobin down to 6.2 so she was sent to the ER. In the ER she was found to have a hemoglobin of 7. Patient has been complaining of difficulty in breathing on and off with occasional episode of dizziness for last few months. It seems patient's hemoglobin in August was 5.7 for which she received blood transfusion after which her hemoglobin has been slowly trending down. She did have an endoscopy earlier this month at [facility] which was reported normal and colonoscopy at [facility] late last year which was reported normal as well. Patient complains of occasional episodes of black tarry bowel movements through ileostomy with last bowel movement of dark color few days ago. Review of Systems 2 General: Reports: 10 or more systems reviewed and unremarkable except in HPI and below Const: Denies: fever(s), chills, body aches, change in appetite, change in weight, malaise, night sweats, diaphoresis, change in sleep pattern, daytime sleepiness or snoring Eyes: Denies: change in vision, blurry vision, photophobia, eye discomfort or eye discharge ENMT: Denies: throat pain, enlarged tonsils, hoarseness, mouth pain, oral sores, dry mouth, tinnitus, nasal congestion or post nasal drip Card: Denies: chest pain, palpitations, irregular heart rhythm, edema, swelling of feet/ankles, lightheadedness, syncope, pre-syncope, dyspnea on exertion, orthopnea, leg pain with exertion or acrocyanosis Resp: Denies: dyspnea, productive cough, non-productive cough, wheezing, stridor, pain on inspiration, change in phlegm color, hemoptysis or chest congestion GI: Denies: abdominal pain, nausea, vomiting, hematemesis, coffee ground emesis, dysphagia, heartburn, diarrhea, constipation, bloating, GI cramping, change in bowel habits, pain on defecation, hematochezia or melena : Denies: flank pain, dysuria, urinary frequency, urinary urgency, urinary hesitancy, nocturia or hematuria Musc: Denies: neck pain, back pain, extremity pain, joint pain, joint swelling, joint redness, joint stiffness or limited range of motion Neuro: Denies: headache(s), numbness in extremities, weakness in extremities, sensory changes, lack of coordination, difficulty walking, frequent falls, dizziness, vertigo, confusion, Slurred speech present, difficulty communicating thoughts or seizure-like activity Psych: Denies: anxiety, depression, mood swings, panic attacks, hopelessness or irritability Endo: Denies: polyuria, polydipsia, tired all the time, cold intolerance, excessive sweating, flushing or heat intolerance Ervin/Lymph: Denies: easy bruising or easy bleeding All/Imm: Denies: tongue swelling, facial swelling or acute wheezing Medications/Allergies Home Medications Medication Instructions Recorded Confirmed Last Taken Type hydrocodone 5 mg-acetaminophen 325 1 tab PO Q6H PRN pain #14 tabs 10/31/23 Unknown Rx mg tablet Allergies Allergy/AdvReac Type Severity Reaction Status Date / Time morphine Allergy ADR-Vomitin Verified 11/04/23 14:11 g PFSH Acute 2 PFSH: Medical History (Updated 11/04/23 @ 17:26 by Saul Teague MD) Hypotension Hypothyroidism Amphetamine abuse Tracheostomy in place Ileostomy in place Laryngeal cancer Surgical History (Updated 11/04/23 @ 17:23 by Saul Teague MD) S/P percutaneous endoscopic gastrostomy (PEG) tube placement Social History (Updated 11/04/23 @ 17:24 by Saul Teague MD) Smoking and tobacco/nicotine status: former use of tobacco/nicotine Alcohol intake: never Substance/Drug Use: former Caregiver/support person: Yes Lives independently: Yes Household members: spouse Vitals/I&O/Wt Last Vital Signs Temp 98.2 F 11/04/23 14:06 Pulse 72 11/04/23 14:06 Resp 17 11/04/23 14:06 BP 127/65 11/04/23 14:06 Pulse Ox 100 11/04/23 14:06 O2 Del Method Room Air 11/04/23 14:06 Weight last 48 hrs Weight 45.813 kg Physical Exam 2 Narrative: General: No acute distress, AO x3 chronically sick appearing, cachectic, temporal wasting, pallor present, port in place in right hemithorax, tracheostomy in place at the center of the neck with clean edges, ileostomy and PEG tube in place HEENT: PERRLA, pupils bilaterally equal and reactive Chest: Normal vesicular breath sounds, no added sounds, equal good air entry bilaterally CVS: S1-S2 regular, no murmurs, no tachycardia, no gallops, no rubs Abdomen: Soft, nontender, no organomegaly, bowel sounds present Neuro: No focal deficits, no facial deformity, AO x3, power 5/5 in all limbs Data 11/04/23 14:30 11/04/23 14:30 A&P Assessment and plan (1) Anemia: Acute on chronic. She did receive blood transfusion back in August. Patient apparently has had EGD earlier this month which was reported normal and colonoscopy late last year which was reported normal as well. Will try to request documentation. Patient would like to follow-up further at either [facility] or [facility] for further workup. Check haptoglobin, LDH, reticulocyte count, iron panel, vitamin B12 and folate levels. Transfused 2 unit of PRBC. Monitor for fluid overload. Protonix twice daily. Start on Carafate ACHS. (2) CHF (congestive heart failure): Shortness of breath and dizziness most likely in setting of severe anemia. CHF cannot be ruled out given history of chemoradiation. Check echocardiogram. (3) S/P percutaneous endoscopic gastrostomy (PEG) tube placement: Continue with feeding as per home. (4) Tracheostomy in place: Tracheostomy care (5) Ileostomy in place: (6) Hyperkalemia: D5 with 10 units of insulin. Repeat BMP in morning. (7) Hypothyroidism: Continue with home dose of levothyroxine. Check TSH. (8) Hypotension: Goal blood pressure less than 140/90 mmHg with mean over 65. Continue with home dose of midodrine 10 mg 3 times daily. Plan Full code Continue with home PEG tube feeds Protonix will be sufficient for PUD prophylaxis SCDs for DVT prophylaxis Attestations 2 Medical Necessity Statement*: Admission under observation for management of symptomatic anemia with dizziness and difficulty breathing requiring blood transfusion and the patient with history of laryngeal cancer post laryngectomy, PEG tube in ileostomy in place Diagnoses Anemia D64.9 CHF (congestive heart failure) I50.9 S/P percutaneous endoscopic gastrostomy (PEG) tube placement Z93.[address] Z93.[address] Z93.2 Hyperkalemia E87.5 Hypothyroidism E03.9 Hypotension I95.9
--- NOTE | 2023-11-04 16:40 | PC.NURSE ---
Attempted x 2 for second IV access x 2 RN. Unable to obtain second IV access. notified. MD rayed port access. Port accessed by jerri GASTELUM.
[2023-11-04 16:54] LABS: Reticulocyte % 4.5 % (0.5-2.0)
[2023-11-04 17:06] LABS: Lactate Dehydrogenase 188 U/L (135-214)
[2023-11-04 17:12] LABS: Procalcitonin 0.17 ng/mL (0-0.5)
[2023-11-04] MEDS: calcium chloride 10% Syr 10 mL 1 GM IVP (17:35)
--- NOTE | 2023-11-04 18:35 | PC.NURSE ---
Pt transferred via gurney from ER to Med Surg Rm [id number] at 1830
[2023-11-04 18:56] LABS: Iron 14 ug/dL (37-145)
[2023-11-04 19:36] LABS: Percent Saturation 3.1 % (20-50); Total Iron Binding Capacity 451 mcg/dl; Unsaturated Iron Binding 437 ug/dL (112-347); Vitamin B12 723 pg/mL (232-1245)
[2023-11-04] MEDS: pantoprazole 40 mg SDV IVP (20:37)
[2023-11-04] MEDS: HYDROmorphone 1 mg/mL INJ 1 mL 0.4 MG IVP ×2 (21:27→23:06)
[2023-11-04] MEDS: acetaminophen 1,000 MG/100 ML PIGGYBACK 400 MG IV (23:06)
[2023-11-05 01:28] LABS: Charge for UA Resulting for Rev
[2023-11-05 01:30] LABS: Bilirubin Urine Negative (Negative); Blood Urine 1+ (Negative); Glucose Urine UA Negative (Normal); Ketones Urine Negative (Negative); Leukocyte Esterase Urine Trace (Negative); Nitrate Urine Negative (Negative); Protein Urine Negative (Negative); Specific Gravity, Urine 1.013 (1.005-1.030); Urine Appearance Clear (CLEAR); Urobilinogen Urine 0.2 mg/dL (Negative)
[2023-11-05 01:35] LABS: Bacteria Urine None Seen /hpf; Hyaline Casts Urine 1.21 /lpf; Squamous Epithelial Cell Urine 0-5 /hpf (0-5); WBC Urine 0-5 /hpf (0-5)
[2023-11-05 01:37] LABS: Urine Color Yellow (Yellow)
[2023-11-05 03:36] VITALS: RESP 16
[2023-11-05] MEDS: HYDROmorphone 1 mg/mL INJ 1 mL 0.4 MG IVP (03:36)
[2023-11-05 04:00] VITALS: BP 126/63; PULSE 71; RESP 16; TEMP 36.7; O2SAT 95
[2023-11-05 04:26] LABS: Basophils # 0.1 10^3/uL (0.0-0.1); Basophils % 0.8 %; Eosinophils # 0.2 10^3/uL (0.0-0.8); Hematocrit 29.8 % (36-47); Lymphocytes # 1.4 10^3/uL (0.8-4.8); Lymphocytes % 17.1 %; Mean Corpuscular HGB Conc 30.5 g/dL (30-55); Mean Corpuscular Hemoglobin 29.3 pg (27-33); Mean Corpuscular Volume 95.8 fl (85-98); Mean Platelet Volume 9.4 fL (7.4-10.4); Monocytes # 1.1 10^3/uL (0.2-0.9); Monocytes % 14.1 %; Neutrophils # 5.15 10^3/uL (1.8-7.7); Neutrophils % 64.5 %; Nucleated Red Blood Cells % 0 %; Platelet Count 303 10^3/cmm (157-399); Red Blood Count 3.11 10^6/uL (3.85-5.65); Red Cell Distribution Width 22.1 % (12.1-15.1); White Blood Count 7.97 10^3/uL (3.29-11.43)
[2023-11-05 04:41] LABS: Alanine Aminotransferase 14 U/L (0-33); Albumin Level 3.3 g/dL (3.5-5.2); Alkaline Phosphatase 88 U/L (35-105); Anion Gap 17.7 (5-19); Aspartate Amino Transferase 19 U/L (0-32); Blood Urea Nitrogen 32 mg/dL (8-23); Calcium 9.6 mg/dL (8.5-10.5); Carbon Dioxide 22 mmol/L (22-29); Chloride 108 mmol/L (98-107); Creatinine Clr Calc Pharmacy 47.2509; Glucose 87 mg/dL (65-115); Magnesium 2.1 mg/dL (1.7-2.3); Osmolality Calculated 302 mOsm/kg (285-295); Phosphorus 4.4 mg/dL (2.5-4.5); Potassium 4.7 mmol/L (3.5-5.1); Sodium 143 mmol/L (136-145); Total Bilirubin 1.6 mg/dL (0.15-1.2); Total Protein 6.3 g/dL (6.6-8.7)
[2023-11-05 04:43] LABS: Chol HDL Ratio 2.56 mg/dL (0.0-4.40); Cholesterol 115 mg/dL (0-200); HDL Cholesterol 45 mg/dL (60-100); LDL Cholesterol Calculated 45 mg/dL (50-129); Triglycerides 127 mg/dL (0-150)
--- NOTE | 2023-11-05 04:47 | PC.NURSE ---
Contacted pt's regarding needing adapters to be able to give her medications through her feeding tube. Pt's husbands states that he is a truckman and is currently driving to drop a load off. Pt's states that it will take him 2 1/2-3 hours to be able to unload his truck, drive back to his home, and come back with the feeding tube supplies. Physician notified.
[2023-11-05 04:55] LABS: Estmated Average Glucose 91; Hemoglobin A1C 4.8 % (4.0-6.0)
[2023-11-05 05:00] LABS: Folate Level > 20.0 ng/mL (4.8-37.3)
[2023-11-05 05:17] VITALS: PULSE 67
[2023-11-05 06:45] VITALS: RESP 16
[2023-11-05] MEDS: HYDROmorphone 1 mg/mL INJ 1 mL IVP (06:45)
[2023-11-05 08:00] VITALS: BP 121/68; PULSE 73; RESP 16; TEMP 36.9; O2SAT 94
[2023-11-05] MEDS: pantoprazole 40 mg SDV IVP (08:34)
[2023-11-05] MEDS: levothyroxine 50 mcg Tablet OG-TUBE (08:34)
[2023-11-05] MEDS: midodrine 5 mg TABLET 10 MG PO (08:34)
[2023-11-05] MEDS: acetaminophen 1,000 MG/100 ML PIGGYBACK 400 MG IV (08:35)
[2023-11-05] MEDS: sucralfate 1 gm/10 mL Oral Liq UDC PO (10:24)
[2023-11-05 10:43] LABS: Free T4 Free Thyroxine 1.01 ng/dL (0.82-1.77); T3 Free 2.3 PG/ML (2.0-4.4)
--- NOTE | 2023-11-05 11:24 | P.DS_ITS ---
Discharge Providers Date of Admission: 11/04/23 17:01 Date of Discharge: November 05, 2023 Attending Provider at Admission: Saul Teague MD Attending Provider at Discharge: Saul Teague MD Primary Care Provider: JASSON Nash Diagnoses at Discharge Discharge Diagnosis (1) Anemia: Status: Acute (2) CHF (congestive heart failure): Status: Suspected (3) S/P percutaneous endoscopic gastrostomy (PEG) tube placement: Status: Acute (4) Tracheostomy in place: Status: Acute (5) Ileostomy in place: Status: Acute (6) Hyperkalemia: Status: Acute (7) Hypothyroidism: Status: Acute (8) Hypotension: Status: Acute (9) Sialolithiasis of submandibular gland: Status: Suspected Reason for Visit Reason for Visit: labs from [place] yest. Hemoglobin low Hospital Course Hospital Course Eliane Noble is a 63 year old female with past medical history of laryngeal cancer, post tracheostomy and PEG tube placement back in January 2023, ileostomy for unknown reason in April 2022, post chemoradiation therapy last in February 2023, who follows up for laryngeal cancer at [facility]. Patient followed up at [place] [facility] yesterday for perioperative care in setting of permanent tracheostomy. On the preoperative blood work she was found to be anemic with hemoglobin down to 6.2 so she was sent to the ER. In the ER she was found to have a hemoglobin of 7. Patient has been complaining of difficulty in breathing on and off with occasional episode of dizziness for last few months. It seems patient's hemoglobin in August was 5.7 for which she received blood transfusion after which her hemoglobin has been slowly trending down. She did have an endoscopy earlier this month at [facility] which was reported normal and colonoscopy at [facility] late last year which was reported normal as well. Patient complains of occasional episodes of black tarry bowel movements through ileostomy with last bowel movement of dark color few days ago. Patient was admitted to the hospital further evaluation and management and received 2 and a blood transfusion to which she responded well and hemoglobin is up to 9.3. Swelling at the left side of the cheek which has been persisting since her endoscopy done at [place] on 10/25. As per review of CT from 10/30 there is no concern for mass on the same side. There is concern for saliva gland obstruction for which she has been advised to continue with lukewarm water and salt gargles along with slow lukewarm water compressions. Patient was advised to follow-up with ENT as an outpatient though she declined and would want to follow-up with her physician on 11/12 at [facility]. She was found to have iron deficiency for which oral iron liquid supplementation has been prescribed which she is to take twice daily. Physical Exam Narrative: General: No acute distress, AO x3 chronically sick appearing, cachectic, temporal wasting, pallor present, port in place in right hemithorax, tracheostomy in place at the center of the neck with clean edges, ileostomy and PEG tube in place HEENT: PERRLA, pupils bilaterally equal and reactive Chest: Normal vesicular breath sounds, no added sounds, equal good air entry bilaterally CVS: S1-S2 regular, no murmurs, no tachycardia, no gallops, no rubs Abdomen: Soft, nontender, no organomegaly, bowel sounds present Neuro: No focal deficits, no facial deformity, AO x3, power 5/5 in all limbs Discharge Data Studies Completed and Pending Completed Studies During Hospitalization Category Date Time Status XR chest 1V portable [id number] Stat Exams 11/04/23 15:26 Completed Pending at discharge Category Date Time Status CV. echo complete* [id number] Stat Ultrasound 11/05/23 12:00 Ordered Radiology Impressions Chest X-Ray 11/04/23 15:26 IMPRESSION: Small right pleural effusion with associated atelectasis Laboratory Results WBC 7.97 10^3/uL (3.29-11.43) 11/05/23 03:28 RBC 3.11 10^6/uL (3.85-5.65) L 11/05/23 03:28 Hgb 9.10 g/dL (11.27-16.99) L 11/05/23 03:28 Hct 29.8 % (36-47) L 11/05/23 03:28 MCV 95.8 fl (85-98) D 11/05/23 03:28 MCH 29.3 pg (27-33) 11/05/23 03:28 MCHC 30.5 g/dL (30-55) 11/05/23 03:28 RDW 22.1 % (12.1-15.1) H 11/05/23 03:28 Plt Count 303 10^3/cmm (157-399) 11/05/23 03:28 MPV 9.4 fL (7.4-10.4) 11/05/23 03:28 Neut % (Auto) 64.5 % 11/05/23 03:28 Lymph % (Auto) 17.1 % 11/05/23 03:28 [place] % (Auto) 14.1 % 11/05/23 03:28 Eos % (Auto) 3.0 % 11/05/23 03:28 Baso % (Auto) 0.8 % 11/05/23 03:28 Reticulocyte % (Auto) 4.5 % (0.5-2.0) H 11/04/23 14:30 Neut # (Auto) 5.15 10^3/uL (1.8-7.7) 11/05/23 03:28 Lymph # (Auto) 1.4 10^3/uL (0.8-4.8) 11/05/23 03:28 [place] # (Auto) 1.1 10^3/uL (0.2-0.9) H 11/05/23 03:28 Eos # (Auto) 0.2 10^3/uL (0.0-0.8) 11/05/23 03:28 Baso # (Auto) 0.1 10^3/uL (0.0-0.1) 11/05/23 03:28 Nucleated RBC % (auto) 0 % 11/05/23 03:28 Nucleated RBCs # 0.0 /100WBC 11/05/23 03:28 Haptoglobin 219.0 mg/L (30-200) H 11/04/23 14:30 Sodium 143 mmol/L (136-145) 11/05/23 03:28 Potassium 4.7 mmol/L (3.5-5.1) 11/05/23 03:28 Chloride 108 mmol/L (98-107) H 11/05/23 03:28 Carbon Dioxide 22 mmol/L (22-29) 11/05/23 03:28 Anion Gap 17.7 (5-19) 11/05/23 03:28 BUN 32 mg/dL (8-23) H 11/05/23 03:28 Creatinine 1.0 mg/dL (0.5-0.9) H 11/05/23 03:28 GFR Calculation 56.0 mL/min (90-130) L 11/05/23 03:28 Glucose 87 mg/dL (65-115) 11/05/23 03:28 Estimat Average Glucose 91 11/05/23 03:28 Hemoglobin A1c 4.8 % (4.0-6.0) 11/05/23 03:28 Calculated Osmolality 302 mOsm/kg (285-295) H 11/05/23 03:28 Calcium 9.6 mg/dL (8.5-10.5) 11/05/23 03:28 Phosphorus 4.4 mg/dL (2.5-4.5) 11/05/23 03:28 Magnesium 2.1 mg/dL (1.7-2.3) 11/05/23 03:28 Iron 14 ug/dL (37-145) L 11/04/23 14:30 TIBC 451 mcg/dl 11/04/23 14:30 % Saturation 3.1 % (20-50) L 11/04/23 14:30 Unsat Iron Binding 437 ug/dL (112-347) H 11/04/23 14:30 Total Bilirubin 1.6 mg/dL (0.15-1.2) H 11/05/23 03:28 AST 19 U/L (0-32) 11/05/23 03:28 ALT 14 U/L (0-33) 11/05/23 03:28 Alkaline Phosphatase 88 U/L (35-105) 11/05/23 03:28 Lactate Dehydrogenase 188 U/L (135-214) 11/04/23 14:30 Creatine Kinase 37 U/L (26-192) 11/04/23 14:30 NT-Pro-B Natriuret Pep 69130 pg/mL (0-125) H 11/04/23 14:30 Total Protein 6.3 g/dL (6.6-8.7) L 11/05/23 03:28 Albumin 3.3 g/dL (3.5-5.2) L 11/05/23 03:28 Globulin 3.0 g/dL (1.3-4.6) 11/05/23 03:28 Triglycerides 127 mg/dL (0-150) 11/05/23 03:28 Cholesterol 115 mg/dL (0-200) 11/05/23 03:28 LDL Cholesterol, Calc 45 mg/dL (50-129) L 11/05/23 03:28 HDL Cholesterol 45 mg/dL (60-100) L 11/05/23 03:28 LDL/HDL Ratio 1.00 RATIO (0.00-3.22) 11/05/23 03:28 Cholesterol/HDL Ratio 2.56 mg/dL (0.0-4.40) 11/05/23 03:28 Vitamin B12 723 pg/mL (232-1245) 11/04/23 14:30 Folate > 20.0 ng/mL (4.8-37.3) 11/05/23 03:28 Procalcitonin 0.17 ng/mL (0-0.5) 11/04/23 14:30 TSH 14.60 uIU/mL (0.27-4.20) H 11/04/23 14:30 Free T4 1.01 ng/dL (0.82-1.77) 11/05/23 03:28 Free T3 2.3 PG/ML (2.0-4.4) 11/05/23 03:28 Urine Color Yellow (Yellow) 11/05/23 00:30 Urine Appearance Clear (CLEAR) 11/05/23 00:30 Urine pH 6.0 (5-7) 11/05/23 00:30 Ur Specific [place] 1.013 (1.005-1.030) 11/05/23 00:30 Urine Protein Negative (Negative) 11/05/23 00:30 Urine Glucose (UA) Negative (Normal) 11/05/23 00:30 Urine Ketones Negative (Negative) 11/05/23 00:30 Urine Blood 1+ (Negative) A 11/05/23 00:30 Urine Nitrate Negative (Negative) 11/05/23 00:30 Urine Bilirubin Negative (Negative) 11/05/23 00:30 Urine Urobilinogen 0.2 mg/dL (Negative) 11/05/23 00:30 Ur Leukocyte Esterase Trace (Negative) A 11/05/23 00:30 Urine RBC 6-10 /hpf (0-2) 11/05/23 00:30 Urine WBC 0-5 /hpf (0-5) 11/05/23 00:30 Ur Squamous Epith Cells 0-5 /hpf (0-5) 11/05/23 00:30 Amorphous Sediment Not Reportable 11/05/23 00:30 Urine Bacteria None seen /hpf (NONE) 11/05/23 00:30 Hyaline Casts 1.21 /lpf 11/05/23 00:30 Blood Type A Positive 11/04/23 15:14 Rho(D) Type Rh positive 11/04/23 15:14 Antibody Screen Negative 11/04/23 15:14 Crossmatch See Detail 11/04/23 15:14 Vitals Last Vital Signs Temp 98.4 F 11/05/23 08:00 Pulse 73 11/05/23 08:00 Resp 16 11/05/23 08:00 BP 121/68 11/05/23 08:00 Pulse Ox 94 11/05/23 08:00 O2 Del Method Trach Collar 11/05/23 08:00 Discharge Plan Discharge Patient Disposition: Home Condition: Stable Prescriptions: New sucralfate 100 mg/mL Suspension 1 g PO AC&BEDTIME 28 Days Qty: 1000 0RF Protonix 40 mg tablet,delayed release (DR/EC) 40 mg PO QAM Qty: 30 0RF ferrous sulfate 220 mg (44 mg iron)/5 mL elixir 44 mg PO BID Qty: 473 0RF Continued hydrocodone-acetaminophen 5-325 mg tablet 1 tab PO Q6H PRN (Reason: pain) Qty: 14 0RF midodrine 10 mg tablet 10 mg feeding tube TID levothyroxine 50 mcg tablet 50 mcg feeding tube DAILY Discharge Orders: Discharge Order (Routine); Ordered 11/05/23 Ordered By: Saul Teague Referrals: Xi Corona FNP [Primary Care Provider] - 1 week (Please contact your primary care provider to set up a hospital follow up appointment within 1 week of discharge.) Discharge Diet: Usual diet and Resume prior tube feeds Discharge Activity: Resume usual activity and Increase activity as tolerated Patient Instructions: Iron Supplements (By mouth), Sucralfate (By mouth), Pantoprazole (By mouth), Anemia (GEN), Opioid Safety Activity Restrictions/Additional Instructions: There is concern for saliva gland obstruction for which she has been advised to continue with lukewarm water and salt gargles along with slow lukewarm water compressions. Oral liquid iron supplementation twice daily through PEG tube. Discharge Attestations Time Spent in Discharge Care*: greater than 30 min Specific Discharge Activities: educating patient, discussing with pcp/other providers, discussing with residential case manager/social workers/dc planners, documenting/other paperwork and evaluating patient/reviewing data Status at Discharge: Cognitive status at discharge: cognitively intact , Behavioral status at discharge: cooperative , Functional status at discharge: other assisted ambulation , Overall status at discharge: patient is back to baseline Quality Metrics Clinical Quality Measures [ No reported AMI, CVA or VTE this stay] Coding Level of Care Code 40341 Total time (in minutes) for Discharge: 60 Diagnoses Anemia D64.9 CHF (congestive heart failure) I50.9 S/P percutaneous endoscopic gastrostomy (PEG) tube placement Z93.[address] Z93.[address] Z93.2 Hyperkalemia E87.5 Hypothyroidism E03.9 Hypotension I95.9 Sialolithiasis of submandibular gland K11.5
[2023-11-05 11:34] VITALS: BP 122/65; PULSE 78; RESP 16; TEMP 36.6; O2SAT 94
--- NOTE | 2023-11-05 12:00 | USCV_ITS ---
Eliane Noble Age: 63 Gender: F : 1960 Exam Date: 11/05/2023 13:23 Ordering Phys: Saul Teague MD Technologist: Juancarlos Ashton [place] [facility] [place]: chf BP: 134 / 60 HR: 72 Rhythm: Sinus Technical Quality: Adequate MEASUREMENTS (Male / Female) Normal Values 2D ECHO LV Diastolic Diameter PLAX 5.4 cm 4.2 - 5.9 / 3.9 - 5.3 cm IVS Diastolic Thickness 1.3 cm 0.6 - 1.0 / 0.6 - 0.9 cm IVS Systolic Thickness 1.7 cm LVPW Diastolic Thickness 1.7 cm 0.6 - 1.0 / 0.6 - 0.9 cm LVPW Systolic Thickness 2.0 cm LVOT Diameter 2.0 cm LV Ejection Fraction 2D Teich 83.1 % LV Ejection Fraction MOD 4C 74.1 % LV Ejection Fraction MOD 2C 76.4 % LV Ejection Fraction 2C AL 78.8 % LA Diameter 4.1 cm RA Systolic Volume 4C AL 37.1 ml RA Systolic Volume 4C MOD 38.3 ml LA Sys Volume AL 62.7 cm cubed LA Sys Volume Index AL 32.3 cm cubed/m squared Aorta at Sinotubular Diameter 1.9 cm IVC Diameter 1.9 cm M-MODE LA Ao Ratio MM 1.8 AV Cusp Separation MM 1.6 cm DOPPLER AV Peak Velocity 211.7 cm/s LVOT Peak Velocity 160.0 cm/s AV Area Cont Eq vti 3.0 cm squared AV Area Cont Eq pk 2.5 cm squared MV Peak Velocity 111.0 cm/s MV Area PHT 3.8 cm squared Mitral E to A Ratio 0.9 TV Peak Velocity 235.2 cm/s TR Peak Velocity 353.0 cm/s TR Peak Gradient 49.8 mmHg TR Mean Velocity 259.0 cm/s TR Mean Gradient 29.2 mmHg TR Velocity Time Integral 92.4 cm PV Peak Velocity 117.0 cm/s RV Ejection Time 0.3 s FINDINGS Left Ventricle Normal left ventricular size, Normal systolic function and wall thickness, estimated ejection fraction is 60%, no regional wall motion abnormalities.Grade I/IV diastolic dysfunction (abnormal relaxation filling pattern), normal to mildly elevated filling pressures. Right Ventricle The right ventricle is normal in size and function. Right Atrium The right atrium is normal in size. Left Atrium Moderately increased left atrial size. Mitral Valve Structurally normal mitral valve without significant stenosis or prolapse. There is moderate mitral regurgitation. Aortic Valve Moderate aortic valve calcification. No aortic valve stenosis. Trace aortic valve regurgitation. . Tricuspid Valve Structurally normal tricuspid valve without significant stenosis or regurgitation. Pulmonary artery systolic pressure is normal. Pulmonic Valve Structurally normal pulmonic valve without significant stenosis. There is no pulmonic regurgitation. Pericardium Normal pericardium without effusion. Aorta Normal ascending aorta dimension. IVC The inferior vena cava appears normal. CONCLUSIONS 1-Normal left ventricular size, Normal systolic function and wall thickness, estimated ejection fraction is 60%, no regional wall motion abnormalities.Grade I/IV diastolic dysfunction (abnormal relaxation filling pattern), normal to mildly elevated filling pressures. 2-Moderately increased left atrial size. 3-Structurally normal mitral valve without significant stenosis or prolapse. There is moderate mitral regurgitation. 4-There is no pericardial effusion. 5-Right atrial pressure is around 5 mm of mercury. Nilda Rosales MD (Electronically Signed) Final Date: 05 November 2023 17:45 S
--- NOTE | 2023-11-05 12:06 | PC.NURSE ---
D/C pending completion of ECHO.
[2023-11-05] MEDS: acetaminophen 325 mg Tablet 650 MG PO (12:45)
== END 2023-11-05 14:49 | disposition home or self-care (01) ==
LOC: ER 16:57 → MEDSURG 17:59
PROVIDERS: Admitting Provider Student in an Organized Health Care Education/Training Program; Emergency Provider Family Medicine; PCP Nurse Practitioner Family; Visit Provider Student in an Organized Health Care Education/Training Program
DX: D64.9 Anemia, unspecified (principal); I50.9 Heart failure, unspecified; Z93.1 Gastrostomy status; Z93.0 Tracheostomy status; Z93.2 Ileostomy status; E87.5 Hyperkalemia; E03.9 Hypothyroidism, unspecified; I95.9 Hypotension, unspecified; K11.5 Sialolithiasis; C32.9 Malignant neoplasm of larynx, unspecified; Z87.891 Personal history of nicotine dependence
CPT/HCPCS: 36430; 36591; 71045; 80053; 80061; 81003; 81015; 82274; 82550; 82607; 82746; 83010; 83036; 83540; 83550; 83615; 83735; 83880; 84100; 84145; 84439; 84443; 84481; 85025; 85045; 86850; 86900; 86920; 93306; 94664; 96374; 96375; 96376; 99285; G0378; J0131; J1170; J2470; J3490; P9016; P9040

== ENCOUNTER 2023-11-16 15:00 | Oncology outpatient (recurring) (ONCR) | payer OTHER, SELFPAY ==
[2023-11-02 15:15] VITALS: BP 89/54; PULSE 87; RESP 16; TEMP 36.5; O2SAT 97
[2023-11-02] MEDS: sodium chloride 0.9% 1,000 ML 999 ML IV ×2 (15:28→16:20)
[2023-11-02 16:06] LABS: Alanine Aminotransferase 13 U/L (0-33); Albumin Level 3.6 g/dL (3.5-5.2); Alkaline Phosphatase 96 U/L (35-105); Anion Gap 17.1 (5-19); Aspartate Amino Transferase 19 U/L (0-32); Blood Urea Nitrogen 55 mg/dL (8-23); Calcium 8.9 mg/dL (8.5-10.5); Carbon Dioxide 21 mmol/L (22-29); Chloride 103 mmol/L (98-107); Glucose 142 mg/dL (65-115); Osmolality Calculated 298 mOsm/kg (285-295); Potassium 6.1 mmol/L (3.5-5.1); Sodium 135 mmol/L (136-145); Total Bilirubin 0.2 mg/dL (0.15-1.2); Total Protein 6.6 g/dL (6.6-8.7)
[2023-11-02 17:03] VITALS: BP 105/67; PULSE 97; RESP 18; TEMP 36.6; O2SAT 93
[2023-11-09] MEDS: sodium chloride 0.9% 1,000 ML 999 ML IV ×2 (13:31→14:35)
[2023-11-09 13:34] VITALS: BP 107/73; PULSE 87; TEMP 36.2; O2SAT 98
[2023-11-09 14:05] LABS: Alanine Aminotransferase 26 U/L (0-33); Albumin Level 4.1 g/dL (3.5-5.2); Alkaline Phosphatase 114 U/L (35-105); Anion Gap 17.2 (5-19); Aspartate Amino Transferase 24 U/L (0-32); Blood Urea Nitrogen 39 mg/dL (8-23); Calcium 9.5 mg/dL (8.5-10.5); Carbon Dioxide 22 mmol/L (22-29); Chloride 106 mmol/L (98-107); Globulin 3.4 g/dL (1.3-4.6); Glomerular Filtration Rate 50.2 mL/min (90-130); Glucose 126 mg/dL (65-115); Osmolality Calculated 301 mOsm/kg (285-295); Potassium 5.2 mmol/L (3.5-5.1); Sodium 140 mmol/L (136-145); Total Bilirubin 0.2 mg/dL (0.15-1.2); Total Protein 7.5 g/dL (6.6-8.7)
[2023-11-09 16:27] VITALS: BP 112/66; PULSE 74; RESP 18; O2SAT 97
[2023-11-16 14:51] VITALS: BP 93/61; PULSE 96; RESP 16; TEMP 36.5; O2SAT 97
[2023-11-16] MEDS: sodium chloride 0.9% 1,000 ML 999 ML IV ×2 (15:08→15:50)
[2023-11-16 15:32] LABS: Alanine Aminotransferase 30 U/L (0-33); Albumin Level 3.8 g/dL (3.5-5.2); Alkaline Phosphatase 104 U/L (35-105); Anion Gap 17.8 (5-19); Aspartate Amino Transferase 38 U/L (0-32); Blood Urea Nitrogen 64 mg/dL (8-23); Calcium 9.3 mg/dL (8.5-10.5); Carbon Dioxide 22 mmol/L (22-29); Chloride 104 mmol/L (98-107); Globulin 3.6 g/dL (1.3-4.6); Glucose 73 mg/dL (65-115); Osmolality Calculated 303 mOsm/kg (285-295); Potassium 5.8 mmol/L (3.5-5.1); Sodium 138 mmol/L (136-145); Total Bilirubin 0.3 mg/dL (0.15-1.2); Total Protein 7.4 g/dL (6.6-8.7)
[2023-11-16 16:33] VITALS: BP 99/66; PULSE 81; RESP 16; TEMP 36.2; O2SAT 99
== END 2023-11-25 23:55 | disposition home or self-care (01) ==
PROVIDERS: Internal Medicine; PCP Nurse Practitioner Family; Visit Provider Internal Medicine Medical Oncology
DX: E86.0 Dehydration; Z53.9 Procedure and treatment not carried out, unspecified reason; C15.9 Malignant neoplasm of esophagus, unspecified; E87.5 Hyperkalemia; Z79.899 Other long term (current) drug therapy
CPT/HCPCS: 80053; 96360; 96361; 96365; 96366; J7030

== ENCOUNTER 2023-12-21 15:00 | Oncology outpatient (recurring) (ONCR) | payer OTHER, SELFPAY ==
[2023-11-30] MEDS: sodium chloride 0.9% 1,000 ML 999 ML IV (15:14)
[2023-11-30 15:18] VITALS: BP 103/70; PULSE 75; RESP 16; TEMP 36.1; O2SAT 99
[2023-11-30 16:29] VITALS: BP 123/80; PULSE 77; RESP 16; TEMP 36.4; O2SAT 99
[2023-12-07] MEDS: sodium chloride 0.9% 1,000 ML 999 ML IV (15:00)
[2023-12-07 15:25] LABS: Alanine Aminotransferase 23 U/L (0-33); Albumin Level 3.8 g/dL (3.5-5.2); Alkaline Phosphatase 93 U/L (35-105); Anion Gap 15.8 (5-19); Aspartate Amino Transferase 29 U/L (0-32); Blood Urea Nitrogen 58 mg/dL (8-23); Calcium 9.2 mg/dL (8.5-10.5); Carbon Dioxide 23 mmol/L (22-29); Chloride 107 mmol/L (98-107); Globulin 3.6 g/dL (1.3-4.6); Glomerular Filtration Rate 63.2 mL/min (90-130); Glucose 86 mg/dL (65-115); Osmolality Calculated 305 mOsm/kg (285-295); Potassium 5.8 mmol/L (3.5-5.1); Sodium 140 mmol/L (136-145); Total Bilirubin 0.2 mg/dL (0.15-1.2); Total Protein 7.4 g/dL (6.6-8.7)
[2023-12-07 15:31] VITALS: BP 91/58; PULSE 84; RESP 17; TEMP 35.9; O2SAT 99
[2023-12-07 15:53] VITALS: BP 98/68; PULSE 74; RESP 18; TEMP 36.4; O2SAT 99
== END 2023-12-25 23:59 | disposition home or self-care (01) ==
PROVIDERS: Internal Medicine; PCP Nurse Practitioner Family; Visit Provider Internal Medicine Medical Oncology
DX: Z53.9 Procedure and treatment not carried out, unspecified reason (principal)
CPT/HCPCS: 80053; 96360; J7030

== ENCOUNTER 2024-01-04 17:35 | Emergency (ER) | payer OTHER, SELFPAY ==
[2024-01-04 17:46] VITALS: BP 88/60; PULSE 97; RESP 20; TEMP 36.8; O2SAT 99
--- NOTE | 2024-01-04 18:05 | ECG_ITS ---
[employer] Test Date: 2024-01-04 Pat Name: Eliane Noble Department: Room: Gender: Female Unit Control Clerk: : 1960 Requested By: Jose A Oliveros Order Number: [id number] Alonso MD: Marciano Meade M.D. Measurements Intervals [place] Rate: 97 P: 77 DE: 133 QRS: 85 QRSD: 104 T: 85 QT: 320 QTc: 408 Interpretive Statements SINUS RHYTHM INCOMPLETE RIGHT BUNDLE BRANCH BLOCK [90+ ms QRS DURATION, TERMINAL R IN V1/V2, 40+ ms S IN I/aVL/V4/V5/V6] LEFT VENTRICULAR HYPERTROPHY AND ST-T CHANGE [VOLTAGE CRITERIA PLUS ST/T ABNORMALITY] Compared to ECG 09/22/2018 13:58:26 Left ventricular hypertrophy now present ST (T wave) deviation now present T-wave abnormality no longer present Possible ischemia no longer present Electronically Signed On 01-05-2024 07:41:36 CDT by Marciano Meade M.D. [email or web address]
[2024-01-04 18:30] VITALS: BP 108/60; PULSE 93; O2SAT 99
[2024-01-04 18:38] LABS: Basophils # 0.1 10^3/uL (0.0-0.1); Basophils % 0.9 %; Eosinophils # 0.1 10^3/uL (0.0-0.8); Eosinophils % 0.9 %; Hematocrit 36.7 % (36-47); Lymphocytes # 1.3 10^3/uL (0.8-4.8); Lymphocytes % 16.3 %; Mean Corpuscular HGB Conc 30.8 g/dL (30-55); Mean Corpuscular Hemoglobin 30.1 pg (27-33); Mean Corpuscular Volume 97.6 fl (85-98); Mean Platelet Volume 9.9 fL (7.4-10.4); Monocytes # 0.6 10^3/uL (0.2-0.9); Monocytes % 8.1 %; Neutrophils # 5.73 10^3/uL (1.8-7.7); Neutrophils % 73.5 %; Nucleated Red Blood Cells % 0 %; Platelet Count 410 10^3/cmm (157-399); Red Blood Count 3.76 10^6/uL (3.85-5.65); Red Cell Distribution Width 18.3 % (12.1-15.1); White Blood Count 7.79 10^3/uL (3.29-11.43)
--- NOTE | 2024-01-04 18:47 | XRR_ITS ---
PROCEDURE INFORMATION: Exam: XR Chest Exam date and time: 01/04/2024 6:56 PM Age: 63 years old Clinical indication: Dyspnea and shortness of breath; Prior surgery; Surgery date: 6+ months; Surgery type: Port TECHNIQUE: Imaging protocol: Radiologic exam of the chest. Views: 1 view. COMPARISON: CR (CHEST, ) 11/04/2023 3:41 PM FINDINGS: Tubes, catheters and devices: Right chest wall port infusion catheter. Lungs: Lungs are mildly hyperinflated. No pulmonary consolidation. Pleural spaces: No pleural effusion or pneumothorax. Heart/Mediastinum: Unremarkable. No cardiomegaly. Bones/joints: No acute osseous abnormalities are seen. XR/XR chest 1V portable [id number] IMPRESSION: No acute cardiopulmonary disease.
--- NOTE | 2024-01-04 19:04 | ED_ITS ---
HPI - Weakness 2 General: Chief complaint: Weakness Stated complaint: possbile dehydration Time Seen by Provider: 01/04/24 18:29 History of Present Illness: Patient presents to the ER due to hypotension, worsening shortness of breath specialist is urgent, syncopal episode, patient has a history of anemia, laryngeal cancer, CHF tracheostomy, patient said home health blood pressure was approximately 108/60. Patient says she normally gets very dehydrated and very weak but also history of anemia that required transfusion x 2. Review of Systems 2 General: Reports: 10 or more systems reviewed and unremarkable except in HPI and below PFSH ED 2 PFSH: Medical History Hypotension Hypothyroidism Amphetamine abuse Tracheostomy in place Ileostomy in place Laryngeal cancer Surgical History S/P percutaneous endoscopic gastrostomy (PEG) tube placement Social History Smoking and tobacco/nicotine status: former use of tobacco/nicotine Alcohol intake: never Substance/Drug Use: former Caregiver/support person: Yes Lives independently: Yes Household members: spouse Physical Exam 2 Const: COMMON NORMALS: no acute distress, average body habitus, patient oriented x3, no limitations, healthy appearing, alert and well nourished HENMT: COMMON NORMALS: normocephalic, atraumatic, hearing grossly normal bilaterally, external ears normal, Normal external nose present and moist oral mucous membranes HEAD & SCALP: normocephalic and atraumatic NOSE: Normal external nose present EXTERNAL EAR: Yes external ears normal Neck/C-Spine: COMMON NORMALS: no JVD OTHER: Tracheostomy in place Chest: COMMONS NORMALS: normal inspection of the chest and normal palpation of entire chest wall Resp: COMMON NORMALS: normal respiratory effort, No retractions, No use of accessory muscles and clear to auscultation bilaterally AUSCULTATION: clear to auscultation bilaterally Cardio: COMMON NORMALS: no JVD, regular rate, regular rhythm, S1 normal heart sound present, S2 normal heart sound present, No gallops present (Cardio), No clicks present (Cardio), No murmurs present (Cardio) and No rub (Cardio) R ATE: regular rate RHYTHM: regular rhythm HEART SOUNDS: S1 normal heart sound present and S2 normal heart sound present GI: COMMON NORMALS: Normal to inspection, nondistended, normoactive bowel sounds present, Soft to palpation, non-tender, No hepatosplenomegaly present and no masses PALPATION: Yes Soft to palpation and Yes No hepatosplenomegaly present Neuro: COMMON NORMALS: patient oriented x3 SENSORIUM/ORIENTATION: Yes alert Course 2 Vital Signs: Vital signs: Vital Signs Temperature 98.2 F 01/04/24 17:46 Pulse Rate 90 01/04/24 20:42 Respiratory Rate 16 01/04/24 19:22 Blood Pressure 97/50 01/04/24 20:42 Pulse Oximetry 99 01/04/24 20:42 Oxygen Delivery Me thod Room Air 01/04/24 20:42 MDM - Weakness Medical Decision Making Patient had lab workup revealed potassium of 5.6, BUN/creatinine of 58 and 1.0, chest x-ray showed no acute cardiopulmonary disease, patient was infused with 1 L normal saline bolus fentanyl 25 mcg, and 4 mg Zofran, after the bolus patient said she was feeling much better and is ready to go home. Patient be discharged home. Medical Records I reviewed the patient's medical records. Lab Data I reviewed the patient's lab results. 01/04/24 18:29 01/04/24 18:29 Radiology Impressions Chest X-Ray 01/04/24 18:47 IMPRESSION: No acute cardiopulmonary disease. Laboratory Results WBC 7.79 10^3/uL (3.29-11.43) 01/04/24 18:29 RBC 3.76 10^6/uL (3.85-5.65) L 01/04/24 18:29 Hgb 11.30 g/dL (11.27-16.99) 01/04/24 18:29 Hct 36.7 % (36-47) 01/04/24 18:29 MCV 97.6 fl (85-98) 01/04/24 18: MCH 30.1 pg (27-33) 01/04/24 18: MCHC 30.8 g/dL (30-55) 01/04/24 18:29 RDW 18.3 % (12.1-15.1) H 01/04/24 18:29 Plt Count 410 10^3/cmm (157-399) H 01/04/24 18:29 MPV 9.9 fL (7.4-10.4) 01/04/24 18: Neut % (Auto) 73.5 % 01/04/24 18: Lymph % (Auto) 16.3 % 01/04/24 18:29 Ripley % (Auto) 8.1 % 01/04/24 18: Eos % (Auto) 0.9 % 01/04/24 18: Baso % (Auto) 0.9 % 01/04/24 18: Neut # (Auto) 5.73 10^3/uL (1.8-7.7) 01/04/24 18: Lymph # (Auto) 1.3 10^3/uL (0.8-4.8) 01/04/24 18: Ripley # (Auto) 0.6 10^3/uL (0.2-0.9) 01/04/24 18: Eos # (Auto) 0.1 10^3/uL (0.0-0.8) 01/04/24 18: Baso # (Auto) 0.1 10^3/uL (0.0-0.1) 01/04/24 18: Nucleated RBC % (auto) 0 % 01/04/24 18: Nucleated RBCs # 0.0 /100WBC 01/04/24 18:29 Sodium 133 mmol/L (136-145) L 01/04/24 18:29 Potassium 5.6 mmol/L (3.5-5.1) H 01/04/24 18: Chloride 102 mmol/L (98-107) 01/04/24 18: Carbon Dioxide 20 mmol/L (22-29) L 01/04/24 18:29 Anion Gap 16.6 (5-19) 01/04/24 18:29 BUN 58 mg/dL (8-23) H 01/04/24 18:29 Creatinine 1.0 mg/dL (0.5-0.9) H 01/04/24 18:29 GFR Calculation 56.0 mL/min (90-130) L 01/04/24 18:29 Glucose 96 mg/dL (65-115) 01/04/24 18:29 Calculated Osmolality 292 mOsm/kg (285-295) 01/04/24 18:29 Calcium 9.0 mg/dL (8.5-10.5) 01/04/24 18:29 Total Bilirubin 0.2 mg/dL (0.15-1.2) 01/04/24 18:29 AST 35 U/L (0-32) H 01/04/24 18:29 ALT 34 U/L (0-33) H 01/04/24 18:29 Alkaline Phosphatase 138 U/L (35-105) H 01/04/24 18:29 Total Protein 7.5 g/dL (6.6-8.7) 01/04/24 18:29 Albumin 3.8 g/dL (3.5-5.2) 01/04/24 18: Globulin 3.7 g/dL (1.3-4.6) 01/04/24 18:29 All radiology interpretation(s) finalized by discharge Discharge Plan Discharge Patient Disposition: Home Clinical Impression: Acute dehydration, Acute hyperkalemia Condition: Stable Prescriptions: No Action hydrocodone-acetaminophen 5-325 mg tablet 1 tab PO Q6H PRN (Reason: pain) Qty: 14 0RF midodrine 10 mg tablet 10 mg feeding tube TID levothyroxine 50 mcg tablet 50 mcg feeding tube DAILY Protonix 40 mg tablet,delayed release (DR/EC) 40 mg PO QAM Qty: 30 0RF ferrous sulfate 220 mg (44 mg iron)/5 mL elixir 44 mg PO BID Qty: 473 0RF Discharge Orders: Discharge ED (Routine); Ordered 01/04/24 Ordered By: Jose A Oliveros Referrals: Xi Corona FNP [Primary Care Provider] - 1 week Patient Instructions: Dehydration (DC), Hyperkalemia Activity Restrictions/Additional Instructions: In the ER your potassium was 5.6 which is slightly high or normal is 5.5, you have been high in the past. You have been given 1 L of normal saline which should help dilute your potassium. Please follow-up with your family practice physician within next 7 to 10 days to have your potassium rechecked. Otherwise if your symptoms return or worsen please feel free to return to the ER. Coding Level of Care Code ED Fitness Studies Teacher for Chg Fwd Related Data Home Medications Medication Instructions Recorded Confirmed levothyroxine 50 mcg tablet 50 mcg feeding tube DAILY 11/04/23 11/04/23 midodrine 10 mg tablet 10 mg feeding tube TID 11/04/23 11/04/23 Previous Rx's Medication Instructions Recorded hydrocodone 5 mg-acetaminophen 325 1 tab PO Q6H PRN pain #14 tabs 10/31/23 mg tablet ferrous sulfate 220 mg (44 mg 44 mg PO BID #473 mL 11/05/23 iron)/5 mL oral elixir pantoprazole 40 mg tablet,delayed 40 mg PO QAM #30 tabs 11/05/23 release (Protonix) Allergies Allergy/AdvReac Type Severity Reaction Status Date / Time morphine Allergy ADR-Vomitin Verified 11/04/23 14:11 g
[2024-01-04 19:05] LABS: Alanine Aminotransferase 34 U/L (0-33); Albumin Level 3.8 g/dL (3.5-5.2); Alkaline Phosphatase 138 U/L (35-105); Anion Gap 16.6 (5-19); Aspartate Amino Transferase 35 U/L (0-32); Blood Urea Nitrogen 58 mg/dL (8-23); Carbon Dioxide 20 mmol/L (22-29); Chloride 102 mmol/L (98-107); Globulin 3.7 g/dL (1.3-4.6); Glucose 96 mg/dL (65-115); Osmolality Calculated 292 mOsm/kg (285-295); Potassium 5.6 mmol/L (3.5-5.1); Sodium 133 mmol/L (136-145); Total Bilirubin 0.2 mg/dL (0.15-1.2); Total Protein 7.5 g/dL (6.6-8.7)
[2024-01-04] MEDS: sodium chloride 0.9% 1,000 ML 999 ML IV (19:20)
[2024-01-04 19:22] VITALS: BP 102/66; PULSE 88; RESP 16; O2SAT 99
[2024-01-04] MEDS: ondansetron 2 mg/ML SDV 2 mL 4 MG IVP (19:33)
[2024-01-04] MEDS: fentaNYL 50 mcg/mL INJ 2mL 25 MCG IVP (19:34)
[2024-01-04 20:42] VITALS: BP 97/50; PULSE 90; O2SAT 99
[2024-01-04 20:57] VITALS: BP 92/60; PULSE 92; RESP 16; O2SAT 100
== END 2024-01-04 20:53 | disposition home or self-care (01) ==
PROVIDERS: Emergency Provider Emergency Medicine; PCP Nurse Practitioner Family
DX: E87.5 Hyperkalemia (principal); E86.0 Dehydration; Z85.21 Personal history of malignant neoplasm of larynx
CPT/HCPCS: 71045; 80053; 85025; 93005; 96361; 96374; 96375; 99285; J1642; J2405; J3010; J7030

== ENCOUNTER 2024-01-25 14:37 | Oncology outpatient (recurring) (ONCR) | payer OTHER, SELFPAY ==
[2024-01-25] MEDS: sodium chloride 0.9% 1,000 ML 999 ML IV (15:02)
[2024-01-25 16:25] VITALS: BP 95/61; PULSE 61; RESP 16; TEMP 35.7; O2SAT 99
== END 2024-01-25 23:59 | disposition home or self-care (01) ==
LOC: ONCMED 14:37
PROVIDERS: PCP Nurse Practitioner Family; Visit Provider Internal Medicine Medical Oncology
DX: C15.9 Malignant neoplasm of esophagus, unspecified (principal); E87.5 Hyperkalemia; I95.9 Hypotension, unspecified; Z79.899 Other long term (current) drug therapy; E87.1 Hypo-osmolality and hyponatremia
CPT/HCPCS: 96360; J7030

== ENCOUNTER 2024-02-15 15:00 | Oncology outpatient (recurring) (ONCR) | payer OTHER, SELFPAY ==
[2024-02-01] MEDS: sodium chloride 0.9% 1,000 ML 999 ML IV (15:28)
[2024-02-01 16:56] VITALS: BP 106/56; PULSE 66; RESP 17; TEMP 36; O2SAT 96
[2024-02-08] MEDS: sodium chloride 0.9% 1,000 ML 999 ML IV (15:13)
[2024-02-15] MEDS: sodium chloride 0.9% 1,000 ML 999 ML IV (15:22)
== END 2024-02-24 23:59 | disposition home or self-care (01) ==
PROVIDERS: PCP Nurse Practitioner Family; Visit Provider Internal Medicine Hematology & Oncology
DX: E87.5 Hyperkalemia; C15.9 Malignant neoplasm of esophagus, unspecified; E86.0 Dehydration; Z79.899 Other long term (current) drug therapy; Z53.9 Procedure and treatment not carried out, unspecified reason
CPT/HCPCS: 96360; J7030

== ENCOUNTER 2024-04-22 12:00 | Oncology outpatient (recurring) (ONCR) | payer OTHER, SELFPAY ==
--- NOTE | 2024-04-17 11:09 | N.ONRAD NP_ITS ---
Radiation Oncology New Patient Visit Patient: Eliane Noble MR#: [id number] : 1960> Age: 64> Sex: Female> Dictated by: Dr. Carol Ann Martin Date of Service: 04/17/2024 Referring Physician(s) : [facility] Diagnosis: Small cell lung cancer limited stage Radiotherapy to date: Summary patient received 70 [place] for larynx cancer in 2014 along with chemotherapy. 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 Her larynx cancer was in 2014 and her esophageal cancer was in 2022. At her follow-up recently she was found to have an increase in size of a right middle lobe mass as well as adenopathy on a PET scan. The PET scan scribed mediastinal adenopathy was slightly increased in size and avidity. She also had a right hilar lymph node conglomeration with an SUV of 13.4 which measured 2.4 x 1.5 cm in size. And her right middle lobe nodules with increased uptake both of these have uptake above 10. She is here today to discuss combined modality therapy for small cell carcinoma of the lung. Current Medications: Iron sulfate, hydrocodone 07/27/2024's, levothyroxine, midodrine, Protonix Allergies: Morphine Medical History: Hypotension Hypothyroidism Amphetamine abuse Tracheostomy in place Ileostomy in place Laryngeal cancer. Surgical History: Tracheostomy, ileostomy, S/P percutaneous endoscopic gastrostomy (PEG) tube placement Family History: Noncontributory Social History: Smoking and tobacco/nicotine status: former use of tobacco/nicotine Alcohol intake: never Substance/Drug Use: former , patient previously used methamphetamine Caregiver/support person: Yes Lives independently: Yes Household members: spouse Current Complaints / Review of Systems: . Vital Signs: Physical Exam: General Patient is in no apparent distress. She is alone today HEENT: Normocephalic atraumatic. Pupils are equal sclera injected, extraocular muscles intact. Trach is in place. Patient is unable to speak due to her trach. Pulmonary: Respiratory rate is regular nonlabored Cardiovascular: Regular rate and rhythm Abdomen: Patient is quite cachectic with minimal adipose tissue Extremities: Without obvious edema or lymphedema noted Neurological: Alert and oriented x 3, gait intact Psych: Affect is appropriate for having had 3 different cancers. Patient is anxious to get started. Performance Status: 80 Pathology: Impression: Small cell carcinoma of the lung with limited stage Plan: I reviewed with the patient the typical course of treatment which involved radiation and chemotherapy. She has previously had radiation twice. We did review her simulation process. She asked how many treatments we talked about a 6-week course along with her chemotherapy. We reviewed the risks and side effects of treatment both acute and long-term. We will get getting her records from [facility] in terms of her prior radiation treatments. We should have those by the end of the week. She has appointments tomorrow so she will be back on Monday to undergo simulation. She will see medical oncology later today. They are awaiting her records as well to determine what chemotherapy she might be able to tolerate. This point she has agreed to proceed with treatment. She is frustrated and anxious having to deal with her third cancer. She communicates all this through either writing on a piece paper or typing on her phone. This point we will get her simulation scheduled to begin her treatments as soon as possible. Signed by: 04/17/2024 11:08:26 AM <<Signature on File>> Time spent on patient:45 CPT Code: CPT Code:
[2024-04-17 14:34] LABS: Basophils # 0.1 10^3/uL (0.0-0.1); Basophils % 0.8 %; Eosinophils # 0.1 10^3/uL (0.0-0.8); Hematocrit 34.4 % (36-47); Lymphocytes # 1.3 10^3/uL (0.8-4.8); Lymphocytes % 21.3 %; Mean Corpuscular HGB Conc 30.8 g/dL (30-55); Mean Corpuscular Hemoglobin 28.3 pg (27-33); Mean Corpuscular Volume 91.7 fl (85-98); Mean Platelet Volume 10.2 fL (7.4-10.4); Monocytes # 0.4 10^3/uL (0.2-0.9); Monocytes % 7.2 %; Neutrophils # 4.22 10^3/uL (1.8-7.7); Neutrophils % 69.4 %; Nucleated Red Blood Cells % 0 %; Platelet Count 236 10^3/cmm (157-399); Red Blood Count 3.75 10^6/uL (3.85-5.65); White Blood Count 6.09 10^3/uL (3.29-11.43)
[2024-04-17 14:59] LABS: Alanine Aminotransferase 17 U/L (0-33); Albumin Level 3.6 g/dL (3.5-5.2); Alkaline Phosphatase 118 U/L (35-105); Anion Gap 14.8 (5-19); Aspartate Amino Transferase 21 U/L (0-32); Blood Urea Nitrogen 23 mg/dL (8-23); Calcium 9.5 mg/dL (8.5-10.5); Carbon Dioxide 21 mmol/L (22-29); Chloride 106 mmol/L (98-107); Creatinine Clr Calc Pharmacy 48.3278; Ferritin 45 ng/mL (15-150); Globulin 3.6 g/dL (1.3-4.6); Glomerular Filtration Rate 72.2 mL/min (90-130); Glucose 85 mg/dL (65-115); Iron 35 ug/dL (37-145); Lactate Dehydrogenase 190 U/L (135-214); Magnesium 1.8 mg/dL (1.7-2.3); Osmolality Calculated 287 mOsm/kg (285-295); Percent Saturation 10.2 % (20-50); Potassium 4.8 mmol/L (3.5-5.1); Sodium 137 mmol/L (136-145); Total Bilirubin 0.2 mg/dL (0.15-1.2); Total Iron Binding Capacity 343 mcg/dl; Total Protein 7.2 g/dL (6.6-8.7); Unsaturated Iron Binding 308 ug/dL (112-347)
[2024-04-17 15:13] LABS: Vitamin B12 843 pg/mL (232-1245)
[2024-04-17 15:16] LABS: Folate Level 16.5 ng/mL (4.8-37.3)
== END 2024-04-26 23:59 | disposition home or self-care (01) ==
PROVIDERS: PCP Nurse Practitioner Family; Visit Provider Internal Medicine
DX: Z53.9 Procedure and treatment not carried out, unspecified reason (principal); Z51.0 Encounter for antineoplastic radiation therapy; C34.2 Malignant neoplasm of middle lobe, bronchus or lung
CPT/HCPCS: 36591; 77300; 77301; 77334; 77338; 80053; 82607; 82728; 82746; 83540; 83550; 83615; 83735; 85025

== ENCOUNTER 2024-05-10 07:28 | Oncology outpatient (recurring) (ONCR) | payer OTHER, SELFPAY ==
[2024-05-01 07:52] LABS: Basophils # 0.1 10^3/uL (0.0-0.1); Basophils % 0.8 %; Eosinophils # 0.3 10^3/uL (0.0-0.8); Lymphocytes % 15.7 %; Mean Corpuscular HGB Conc 30.9 g/dL (30-55); Mean Corpuscular Hemoglobin 28.4 pg (27-33); Mean Corpuscular Volume 91.9 fl (85-98); Mean Platelet Volume 9.4 fL (7.4-10.4); Monocytes # 0.6 10^3/uL (0.2-0.9); Monocytes % 10.3 %; Neutrophils # 4.26 10^3/uL (1.8-7.7); Neutrophils % 68.9 %; Nucleated Red Blood Cells % 0 %; Platelet Count 267 10^3/cmm (157-399); Red Blood Count 3.59 10^6/uL (3.85-5.65); Red Cell Distribution Width 13.2 % (12.1-15.1); White Blood Count 6.19 10^3/uL (3.29-11.43)
[2024-05-01 08:10] LABS: Alanine Aminotransferase 9 U/L (0-33); Albumin Level 3.5 g/dL (3.5-5.2); Alkaline Phosphatase 109 U/L (35-105); Anion Gap 14.4 (5-19); Aspartate Amino Transferase 18 U/L (0-32); Blood Urea Nitrogen 25 mg/dL (8-23); Carbon Dioxide 22 mmol/L (22-29); Chloride 104 mmol/L (98-107); Creatinine Clr Calc Pharmacy 42.2233; Globulin 3.4 g/dL (1.3-4.6); Glucose 97 mg/dL (65-115); Lactate Dehydrogenase 180 U/L (135-214); Osmolality Calculated 286 mOsm/kg (285-295); Potassium 4.4 mmol/L (3.5-5.1); Sodium 136 mmol/L (136-145); Total Bilirubin 0.2 mg/dL (0.15-1.2); Total Protein 6.9 g/dL (6.6-8.7)
[2024-05-01] MEDS: sodium chloride 0.9% 250 ML 75 ML IV (09:20)
[2024-05-01] MEDS: ondansetron 2 mg/ML SDV 2 mL 8 MG IVP (09:25)
[2024-05-01] MEDS: famotidine 20 mg/2 mL INJ IVP (09:29)
[2024-05-01] MEDS: diphenhydrAMINE 50 mg/mL SDV 1mL 25 MG IVP (09:34)
[2024-05-01] MEDS: aprepitant 130 mg/18 ml SDV IVP (09:38)
[2024-05-01] MEDS: dexamethasone 4 mg/mL INJ 5 mL 12 MG IV (09:42)
[2024-05-01] MEDS: acetaminophen 325 mg Tablet 650 MG PO (09:48)
[2024-05-01] MEDS: OLANZapine 5 mg TABLET PO (09:49)
[2024-05-01] MEDS: SODIUM CHLORIDE 0.9% IV (10:13)
[2024-05-01] MEDS: CARBOPLATIN IV (10:13)
[2024-05-01] MEDS: etoposide 140 MG in sodium chloride 0.9%(non-DEHP) 500 ML 507 MG IV (11:42)
[2024-05-01 13:07] VITALS: BP 101/57; PULSE 53; RESP 16; TEMP 36.3; O2SAT 97
[2024-05-02] MEDS: sodium chloride 0.9% 250 ML 100 ML IV (11:16)
[2024-05-02] MEDS: ondansetron 2 mg/ML SDV 2 mL 8 MG IVP (11:20)
[2024-05-02 11:22] VITALS: BP 124/69; PULSE 60; RESP 17; TEMP 36.6; O2SAT 97
[2024-05-02] MEDS: etoposide 140 MG in sodium chloride 0.9%(non-DEHP) 500 ML 507 MG IV (12:02)
[2024-05-02 13:34] VITALS: BP 147/72; PULSE 58; RESP 17; TEMP 36.7; O2SAT 100
[2024-05-03 07:54] VITALS: BP 145/74; PULSE 60; RESP 17; TEMP 36.7
[2024-05-03] MEDS: sodium chloride 0.9% 250 ML 75 ML IV (08:12)
[2024-05-03] MEDS: palonosetron 0.25 mg/5 mL SDV IVP (08:16)
[2024-05-03] MEDS: etoposide 140 MG in sodium chloride 0.9%(non-DEHP) 500 ML 507 MG IV (09:02)
[2024-05-03 10:12] VITALS: BP 149/82; PULSE 55; O2SAT 98
--- NOTE | 2024-05-07 14:42 | ONCRAD TMN_ITS ---
Radiation Oncology Weekly Treatment Management Patient: Aide Mckeon MR#: [id number] : 1960> Attending Physician: Dr. Carol Ann Martin Date of Service: 05/07/2024 Fractions: 4 out of 30 Referring Physician(s) : Diagnosis: C34.2 - Malignant neoplasm of middle lobe, bronchus or lung, Diagnosed 04/17/2024 (Active) Radiotherapy to date: Course: RML, Treatment Site: RML mediastinum, Ref. ID: [id number], Energy: 6X, Dose/Fx (cGy): 200, #Fx: , Dose Correction (cGy): 0, Total Dose Delivered (cGy): 1,000, Start Date: 05/01/2024, Elapsed Days: 6 Reason for visit: The patient is being seen today as part of their regularly scheduled weekly on treatment visits to assess for acute toxicities from radiotherapy. Review of Systems: Patient apparently began to have increasing ear pain over the last day. It was to the point this morning she was in tears. She took her last oxycodone pill this morning without relief. Vital Signs: Performed on 05/07/2024 2:24 PM BMI - 15.964 kg/m2 (low), Height - 64 in, Weight - 93 lbs, Temperature - 97.9 f, Pulse - 103 /min (high), Respiration - 18 /min, O2 Sat - 99 %, Pain - 10, Fatigue - 0 and BP - 98/ 66 mm(hg). Physical Exam: No changes on exam. Imaging: Radiation therapy imaging related to accurate target localization (i.e. KV, MV and CBCT) was reviewed. Appropriate changes, if any, were made to ensure treatment accuracy. Plan: I have sent a prescription to our pharmacy for additional oxycodone. Will otherwise continue with her treatments as planned. Signed by: Dr. Carol Ann Martin 05/07/2024 2:41:07 PM
[2024-05-08 09:58] LABS: Basophils % 1.8 %; Eosinophils # 0.1 10^3/uL (0.0-0.8); Eosinophils % 3.6 %; Hematocrit 34.7 % (36-47); Lymphocytes # 0.7 10^3/uL (0.8-4.8); Lymphocytes % 29.9 %; Mean Corpuscular HGB Conc 31.1 g/dL (30-55); Mean Corpuscular Hemoglobin 27.8 pg (27-33); Mean Corpuscular Volume 89.2 fl (85-98); Mean Platelet Volume 10.2 fL (7.4-10.4); Monocytes % 0.9 %; Neutrophils # 1.21 10^3/uL (1.8-7.7); Nucleated Red Blood Cells % 0 %; Platelet Count 209 10^3/cmm (157-399); Red Blood Count 3.89 10^6/uL (3.85-5.65); Red Cell Distribution Width 12.9 % (12.1-15.1); White Blood Count 2.24 10^3/uL (3.29-11.43)
[2024-05-08 10:11] LABS: Alanine Aminotransferase 41 U/L (0-33); Albumin Level 3.6 g/dL (3.5-5.2); Alkaline Phosphatase 134 U/L (35-105); Anion Gap 15.6 (5-19); Aspartate Amino Transferase 43 U/L (0-32); Blood Urea Nitrogen 58 mg/dL (8-23); Calcium 9.2 mg/dL (8.5-10.5); Carbon Dioxide 21 mmol/L (22-29); Chloride 103 mmol/L (98-107); Creatinine Clr Calc Pharmacy 41.6012; Globulin 3.4 g/dL (1.3-4.6); Glucose 98 mg/dL (65-115); Osmolality Calculated 294 mOsm/kg (285-295); Potassium 5.6 mmol/L (3.5-5.1); Sodium 134 mmol/L (136-145); Total Bilirubin 0.3 mg/dL (0.15-1.2)
[2024-05-08 10:25] LABS: Slide Review Slide Review Perform
== END 2024-05-12 23:59 | disposition home or self-care (01) ==
PROVIDERS: Internal Medicine; Nurse Practitioner Family; PCP Nurse Practitioner Family; Visit Provider Radiology Radiation Oncology
DX: Z51.0 Encounter for antineoplastic radiation therapy (principal)
CPT/HCPCS: 36591; 77336; 77386; 80053; 83615; 85025; 96375; 96413; 96415; 96417; J0185; J1100; J1200; J2405; J2469; J3490; J7030; J7040; J7050; J9045; J9181

== ENCOUNTER 2024-05-12 16:09 | Emergency (ER) | payer OTHER, SELFPAY ==
--- NOTE | 2024-05-12 17:16 | ED_ITS ---
HPI - Weakness General: Chief complaint: Weakness Stated complaint: weakness Time Seen by Provider: 05/12/24 16:12 History of Present Illness: 64-year-old female brought in via EMS. Patient is nonverbal due to esophageal cancer. EMS reports that patient texted her to call 911. Upon arrival to the ER patient's is not here and patient was complaining of just generalized pain but would not provide a lot of other information. EMS reports that her reported low blood pressure and her blood pressure is normally in the 60s. That when they got there it was 40s over 20s but they gave her the bolus and improved. No other HPI was available upon patient arrival Review of Systems General: Reports: ROS unobtainable due to medical condition [facility] ED PFS: Medical History Squamous cell carcinoma of supraglottis History of esophageal cancer Hypotension Hypothyroidism Amphetamine abuse Tracheostomy in place Ileostomy in place Laryngeal cancer Surgical History S/P percutaneous endoscopic gastrostomy (PEG) tube placement Social History Smoking and tobacco/nicotine status: unknown if used tobacco/nicotine Alcohol intake: never Substance/Drug Use: former Caregiver/support person: Yes Lives independently: Yes Household members: spouse Physical Exam Const: GENERAL APPEARANCE: frail appearing and appears older than stated age Resp: COMMON NORMALS: normal respiratory effort and No use of accessory muscles Cardio: COMMON NORMALS: regular rate RATE: regular rate PERIPHERAL PULSES: other (Weak,) Course ED course: Shortly after patient arrived and while still be in triage after I had seen patient and was inputting orders, patient became very bradycardic and then had a cardiac arrest. reported that she did not want to be kept alive on machines or intubated. We did do a short round of CPR with 2 rounds of epi while he was deciding whether he wanted us to continue with CPR or to stop CPR. Patient remained in PEA. After further discussion with the he decided that he would prefer us to stop CPR as ultrasound showed no life-sustaining cardiac activity. Patient was pronounced at 1652. MDM - Weakness Medical Decision Making Please see hospital course. Patient was pronounced at 1652 following a short round of CPR prior to decided that he would like to not continue as she would require intubation and to be kept alive on ventilators if we were able to obtain ROSC. We did proceed to stop CPR based on his request. I do feel that this was the right decision as she was very chronically ill and would likely not have came off the ventilator even if we would obtain ROSC. No radiology studies performed this visit Critical Care Time Critical Care Time: Critical Care Time: Yes Total Critical Care Time: 30 Attestation: This case had a high probability of a clinically significant, sudden, or life threatening deterioration of this patient's condition which required my full and direct attention, intervention and personal management. Discharge Plan Discharge Patient Disposition: Clinical Impression: Cardiac arrest, Laryngeal cancer, Hypotension Coding Level of Care Code ED Dining Room Maid for Chg Fwd Related Data Home Medications ?Medication ?Instructions ?Recorded ?Confirmed levothyroxine 50 mcg tablet 50 mcg feeding tube DAILY 11/04/23 05/08/24 midodrine 10 mg tablet 10 mg feeding tube TID 11/0305/08/24 oxycodone 10 mg tablet mg PO 04/17/24 05/08/24 Previous Rx's ?Medication ?Instructions ?Recorded ferrous sulfate 220 mg (44 mg 44 mg PO BID #473 mL 02/17 iron)/5 mL oral elixir pantoprazole 40 mg tablet,delayed 40 mg PO QAM #30 tab s 11/05/23 release (Protonix) lorazepam 1 mg tablet 0.5 - 1 mg (0.5 - 1 x 1 mg) PO Q6H 04/18/24 PRN severe nausea #30 tabs prochlorperazine maleate 10 mg 10 mg PO Q4H PRN mild n ausea #30 04/18/24 tablet (Compazine) tabs oxycodone 10 mg tablet 10 mg PO Q6H PRN pain 3 week s #90 05/07/24 tabs lidocaine-prilocaine 2.5 %-2.5 % 1 applic topical .[facility] PLEX #30 grams 05/08/24 topical cream ondansetron HCl 4 mg tablet 4 mg PO Q6H PRN nausea and 05/08/24 vomiting #30 tabs Allergies Allergy/AdvReac Type Severity Reaction Status Date / Time morphine Allergy ADR-Vomitin Verified 05/08/24 09:57 g
--- NOTE | 2024-05-12 17:37 | PC.NURSE ---
NURSE WAS TRYING TO OBTAIN VITAL SIGNS WITH TECH. PT WAS REACHING AND PULLING FOR NURSE. NURSE ASKED ARE YOU IN PAIN? PT SHOOK HEAD YES. PT MOTION ALL OVER HER BODY. NURSE WAS DOING A RECTAL TEMP AND NOTICED PT WAS LESS RESPONSIVE. PT WAS BREATHING WITH WEAK PULSE. NURSE PUT PT ON ASSOCIATE PROFESSOR OF KINESIOLOGY, PT HR 62. PT WAS STILL LESS RESPONSIVE AND BREATHING. NURSE FELT FOR RADIAL PULSE, PULSE WAS WEAK. AT BEDSIDE WITH PT. NURSE LOOKED AT ASSOCIATE PROFESSOR OF KINESIOLOGY AND NOTICED PT HR TRENDING DOWN. PT WOULD NOT RESPOND, PT NOTICED AGONAL BREATHING. NURSE HIT CODE BLUE BUTTON AND YELLED CODE BLUE ROOM 14. NURSE BEGAN CPR, STAFF ENTERED ROOM WITH DR. BHANDARI. DR. BHANDARI TALKED TO , DECIDED FOR CPR BUT NO VENT.
--- NOTE | 2024-05-12 18:35 | PC.NURSE ---
Melly negro called and advertising writer / warehouse technician notified via text message to respond to ER 14 where patient was lying on gurney while nurse was performing CPR. Melly negro called at 1645. Pulse check was done at 1647 where heart rate was noted to be 23. Compressions were resumed. Epi was given at 1649 along with an initial dose of epi. Pulse check at this time gave a heart rate of 15-20. At 1650 compressions were resumed and at 165 a second dose of epi was given. Compressions stopped at 165 and a pulse check was performed. Asystole noted on monitor as well as no pulse found. Dr Bentley called time of at 165. Next of kin,() Dany, was standing outside the room. Dr Bentley had the ultrasound IV device in the room and was able to show the that her heart was no longer functioning as it should. [facility] was called at 1718, who released the patient due to past medical history of cancer in both larynx and lung. Body transferred to the [facility] in the warehouse technician's office at 1756. Paige loza returned call at 1832 and told warehouse technician not to release the body to the home yet. [facility] was notified of body but were told it had not been officially released yet. Paige Loza is to call warehouse technician back with decision. Body remains in [facility] in warehouse technician's office.
--- NOTE | 2024-05-12 20:15 | PC.NURSE ---
[facility] declined donation to [facility], body to be released to [facility].
--- NOTE | 2024-05-12 21:55 | PC.NURSE ---
[facility] Body released to [facility] @ [id number]
== END 2024-05-12 16:52 | disposition expired ==
PROVIDERS: Emergency Provider Student in an Organized Health Care Education/Training Program; PCP Nurse Practitioner Family
DX: C32.9 Malignant neoplasm of larynx, unspecified (principal); I95.9 Hypotension, unspecified; I46.9 Cardiac arrest, cause unspecified
CPT/HCPCS: 99285